=== PATIENT | male | born 1960 | race Caucasian/White ===

== ENCOUNTER 2021-03-02 22:18 | Inpatient (IN) ==
[2021-03-02] MEDS ORDERED: Isovue-370 500 ML BOTTLE IVP ONE (23:24)
[2021-03-02] MEDS ORDERED: *HR* HYDROmorphone (PF) 1 MG/ML SYRINGE IVP ONE (23:25)
[2021-03-02 23:47] LABS: Basophils # 0.1 K/mcL (0.0-0.2); Basophils % 0.8 %; Eosinophils # 0.1 K/mcL (0.0-0.6); Eosinophils % 0.5 %; Hematocrit 30.5 % (37.5-50.1); Hemoglobin 10.9 g/dL (12.9-16.9); Immature Granulocytes % 7.3 % (0-4); Lymphocytes # 1.5 K/mcL (0.6-4.6); Lymphocytes % 11.5 %; Mean Corpuscular HGB Conc 35.7 g/dL (31.6-35.5); Mean Corpuscular Hemoglobin 32.2 pg (28.0-33.3); Mean Platelet Volume 8.6 fL (9.4-12.4); Monocytes # 1.5 K/mcL (0.0-1.3); Monocytes % 11.6 %; Platelet Count 371 K/mcL (140-400); Red Blood Count 3.39 M/mcL (4.19-5.50); Red Cell Distribution Width 12.4 % (11.5-14.5); Segmented Neutrophils % 68.3 %; White Blood Count 13.1 K/mcL (4.3-11.1)
[2021-03-02 23:50] LABS: Bilirubin,Urine Negative (Negative); Blood,Urine Negative (Negative); Clarity,Urine Clear (Clear); Color,Urine Yellow (Yellow); Glucose,Urine (UA) Normal (Normal); Ketones,Urine Negative (Negative); Leukocyte Esterase,Urine Negative (Negative); Nitrite,Urine Negative (Negative); PH,Urine 6.5 pH Units (5.0-8.0); Protein,Urine Trace mg/dL (Neg-Trace); Specific Gravity,Urine 1.024 (1.010-1.025); Urobilinogen,Urine >=8.0 mg/dL (Normal)
[2021-03-02 23:53] LABS: Alanine Aminotransferase 39 Units/L (7-52); Albumin 3.1 g/dL (3.5-5.7); Alkaline Phosphatase 154 Units/L (34-104); Aspartate Amino Transferase 44 Units/L (13-39); BUN/Creatinine Ratio 33 (6-26); Bilirubin,Direct 0.2 mg/dL (0.0-0.2); Bilirubin,Indirect 0.4 mg/dL (0.0-1.0); Bilirubin,Total 0.6 mg/dL (0.3-1.0); Blood Urea Nitrogen 21 mg/dL (8-23); Calcium 8.8 mg/dL (8.6-10.3); Carbon Dioxide 27 mEq/L (23-29); Chloride 92 mEq/L (98-107); Glucose 126 mg/dL (70-105); Lipase 11 Units/L (11-82); Osmolality,Calculated 275 (280-300); Potassium 4.2 mEq/L (3.5-5.1); Sodium 130 mEq/L (136-145); Total Protein 6.1 g/dL (6.4-8.9); Troponin I 0.03 ng/mL (< 0.04); eGFR For African Americans > 60 (> 60); eGFR For Non-African Americans > 60 (> 60)
[2021-03-03 00:01] LABS: INR 1.3
[2021-03-03 00:04] LABS: Platelet Estimate Normal (Normal); Smudge Cells Present (Not Present); Toxic Granulation Present (Not Present)
[2021-03-03] MEDS ORDERED: Acetaminophen 325 MG TABLET PO PRN (03:06)
[2021-03-03] MEDS ORDERED: Naloxone 0.4 MG/ML INJ IVP PRN (03:06)
[2021-03-03] MEDS ORDERED: Ondansetron 4 MG/2 ML VIAL IVP PRN (03:06)
[2021-03-03] MEDS ORDERED: *HR* HYDROmorphone (PF) 1 MG/ML SYRINGE IVP PRN (03:55)
[2021-03-03 05:47] LABS: Hematocrit 29.5 % (37.5-50.1); Hemoglobin 10.6 g/dL (12.9-16.9); Mean Corpuscular HGB Conc 35.9 g/dL (31.6-35.5); Mean Corpuscular Hemoglobin 32.3 pg (28.0-33.3); Mean Corpuscular Volume 89.9 fL (83.0-100.0); Mean Platelet Volume 8.5 fL (9.4-12.4); Platelet Count 335 K/mcL (140-400); Red Blood Count 3.28 M/mcL (4.19-5.50); Red Cell Distribution Width 12.2 % (11.5-14.5); White Blood Count 13.2 K/mcL (4.3-11.1)
[2021-03-03 06:07] LABS: BUN/Creatinine Ratio 29 (6-26); Blood Urea Nitrogen 17 mg/dL (8-23); Calcium 8.5 mg/dL (8.6-10.3); Carbon Dioxide 26 mEq/L (23-29); Chloride 94 mEq/L (98-107); Glucose 122 mg/dL (70-105); Osmolality,Calculated 267 (280-300); Potassium 4.1 mEq/L (3.5-5.1); Sodium 127 mEq/L (136-145); eGFR For African Americans > 60 (> 60); eGFR For Non-African Americans > 60 (> 60)
[2021-03-03] MEDS: 0.9 % Sodium Chloride 1,000 ML IVC SCH ×2 (06:34→22:47)
[2021-03-03 08:18] LABS: % Iron Saturation 15 % (20-55); Iron 39 mcg/dL (65-175); Transferrin 183 mg/dL (203-362)
[2021-03-03] MEDS: *HR* Heparin 5,000 UNIT/ML VIAL SQ SCH ×3 (08:25→22:42)
[2021-03-03 08:35] LABS: Ferritin 1400 ng/mL (20-250)
[2021-03-03] MEDS: *HR* HYDROmorphone (PF) 1 MG/ML SYRINGE IVP PRN ×4 (08:49→22:41)
[2021-03-03 09:41] LABS: Vitamin B12 > 1500 pg/mL (250-1100)
[2021-03-03] MEDS: levoFLOXacin 750 MG/150 ML 750 MG/150 ML BAG IVPB SCH (13:32)
[2021-03-03] MEDS: Nicotine 14 MG PATCH.TD24 TD SCH (13:33)
[2021-03-03 18:18] LABS: Adenovirus Not Detected (Not Detect); Bordetella Pertussis Not Detected (Not Detect); Chlamydophila pneumoniae Not Detected (Not Detect); Coronavirus 229E Not Detected (Not Detect); Coronavirus HKU1 Not Detected (Not Detect); Coronavirus NL63 Not Detected (Not Detect); Coronavirus OC43 Not Detected (Not Detect); Human Metapneumovirus Not Detected (Not Detect); Human Rhinovirus/Enterovirus Not Detected (Not Detect); Influenza A Subtype 2009 H1 Not Detected (Not Detect); Influenza B Not Detected (Not Detect); Mycoplasma pneumoniae Not Detected (Not Detect); Parainfluenza Virus 1 Not Detected (Not Detect); Parainfluenza Virus 2 Not Detected (Not Detect); Parainfluenza Virus 3 Not Detected (Not Detect); Parainfluenza Virus 4 Not Detected (Not Detect); Respiratory Syncytial Virus Not Detected (Not Detect); SARS-CoV-2 Not Detected (Not Detect)
[2021-03-04] MEDS: *HR* HYDROmorphone (PF) 1 MG/ML SYRINGE IVP PRN ×5 (02:32→22:01)
[2021-03-04] MEDS ORDERED: *HR* Propofol 200 MG/20 ML VIAL IVP ONE ×3 (07:20→08:41)
[2021-03-04] MEDS ORDERED: Lidocaine -MPF 2% 5 ML VIAL ONE (07:20)
[2021-03-04] MEDS ORDERED: *HR* Succinylcholine 200 MG/10 ML VIAL IVP ONE (07:23)
[2021-03-04] MEDS ORDERED: *HR* FentaNYL (PF) 100 MCG/2 ML VIAL ONE (07:24)
[2021-03-04 07:32] LABS: Hematocrit 34.4 % (37.5-50.1); Mean Corpuscular HGB Conc 34.9 g/dL (31.6-35.5); Mean Corpuscular Hemoglobin 31.7 pg (28.0-33.3); Mean Corpuscular Volume 90.8 fL (83.0-100.0); Mean Platelet Volume 8.7 fL (9.4-12.4); Nucleated Red Blood Cells 0.1 /100 WBC (0); Platelet Count 376 K/mcL (140-400); Red Blood Count 3.79 M/mcL (4.19-5.50); Red Cell Distribution Width 12.4 % (11.5-14.5); White Blood Count 14.5 K/mcL (4.3-11.1)
[2021-03-04] MEDS ORDERED: Ondansetron 4 MG/2 ML VIAL ONE (07:32)
[2021-03-04 07:51] LABS: BUN/Creatinine Ratio 23 (6-26); Blood Urea Nitrogen 14 mg/dL (8-23); Calcium 9.1 mg/dL (8.6-10.3); Carbon Dioxide 22 mEq/L (23-29); Chloride 92 mEq/L (98-107); Glucose 113 mg/dL (70-105); Magnesium 1.7 mg/dL (1.6-2.6); Osmolality,Calculated 263 (280-300); Sodium 126 mEq/L (136-145); eGFR For African Americans > 60 (> 60); eGFR For Non-African Americans > 60 (> 60)
[2021-03-04 08:00] LABS: Carcinoembryonic Antigen 2.6 ng/mL (Less than 5.0)
[2021-03-04] MEDS ORDERED: Albuterol 2.5 MG/3 ML NEBULIZER IH PRN (08:02)
[2021-03-04] MEDS ORDERED: Ondansetron 4 MG/2 ML VIAL IVP PRN (08:02)
[2021-03-04] MEDS ORDERED: *HR* FentaNYL (PF) 100 MCG/2 ML VIAL IVP PRN (08:02)
[2021-03-04 08:21] LABS: Lymphocytes # 1.5 K/mcL (0.6-4.6); Monocytes # 0.6 K/mcL (0.0-1.3); Neutrophils # 11.6 K/mcL (1.6-8.9); Platelet Estimate Normal (Normal)
[2021-03-04] MEDS ORDERED: *HR* EPINEPHrine 1 MG/10 ML SYRINGE INTRATRACH PRN (08:48)
[2021-03-04] MEDS ORDERED: *HR* EPINEPHrine 1 MG/10 ML SYRINGE ONE (08:51)
[2021-03-04] MEDS ORDERED: Gadolinium Contrast Agent (WT Based) IV PRN (09:46)
[2021-03-04] MEDS ORDERED: GADOBUTROL 30 MMOL/30 ML VIAL IVP ONE (12:01)
[2021-03-04] MEDS: levoFLOXacin 750 MG/150 ML 750 MG/150 ML BAG IVPB SCH (14:05)
[2021-03-04] MEDS: Nicotine 14 MG PATCH.TD24 TD SCH (14:17)
[2021-03-04] MEDS: Multivit/Ca/Min/Fe/FA 1 TAB TABLET PO SCH (14:18)
[2021-03-04] MEDS ORDERED: D5% in Water 1,000 ML IVC PRN (15:25)
[2021-03-04] MEDS ORDERED: Dextrose Gel 15 GM/37.5 ML TUBE PO PRN ×2 (15:25)
[2021-03-04] MEDS ORDERED: *HR* Dextrose 50 % in Water (Vial) 50 ML VIAL IVP PRN (15:25)
[2021-03-04] MEDS ORDERED: Temazepam 15 MG CAPSULE PO PRN (15:26)
[2021-03-04] MEDS ORDERED: dexAMETHasone 4 MG TABLET PO SCH (15:30)
[2021-03-04] MEDS: Sennosides 8.6 MG TABLET PO SCH ×2 (15:56→22:00)
[2021-03-04] MEDS: dexAMETHasone 4 MG TABLET PO SCH ×2 (16:42→22:00)
[2021-03-04] MEDS: Insulin LISPRO 300 UNITS/3 ML VIAL SUBQ SCH ×2 (18:23→22:01)
[2021-03-04] MEDS: 0.9 % Sodium Chloride 1,000 ML IVC SCH (18:31)
[2021-03-04 19:44] LABS: Appearance of Body Fluid Clear (Clear)
[2021-03-04 19:45] LABS: Volume of Body Fluid 150 mL
[2021-03-04] MEDS: Temazepam 15 MG CAPSULE PO SCH (22:00)
[2021-03-05] MEDS: *HR* HYDROmorphone (PF) 1 MG/ML SYRINGE IVP PRN ×5 (04:27→21:41)
[2021-03-05] MEDS: 0.9 % Sodium Chloride 1,000 ML IVC SCH (06:17)
[2021-03-05] MEDS: *HR* Enoxaparin 40 MG/0.4 ML SYRINGE SQ SCH (06:17)
[2021-03-05 06:25] LABS: Hematocrit 35.1 % (37.5-50.1); Hemoglobin 11.9 g/dL (12.9-16.9); Mean Corpuscular HGB Conc 33.9 g/dL (31.6-35.5); Mean Corpuscular Hemoglobin 30.9 pg (28.0-33.3); Mean Corpuscular Volume 91.2 fL (83.0-100.0); Mean Platelet Volume 8.7 fL (9.4-12.4); Platelet Count 387 K/mcL (140-400); Red Blood Count 3.85 M/mcL (4.19-5.50); Red Cell Distribution Width 12.6 % (11.5-14.5); White Blood Count 17.7 K/mcL (4.3-11.1)
[2021-03-05 06:43] LABS: BUN/Creatinine Ratio 38 (6-26); Blood Urea Nitrogen 23 mg/dL (8-23); Calcium 9.1 mg/dL (8.6-10.3); Carbon Dioxide 26 mEq/L (23-29); Chloride 96 mEq/L (98-107); Glucose 215 mg/dL (70-105); Magnesium 1.8 mg/dL (1.6-2.6); Osmolality,Calculated 282 (280-300); Sodium 131 mEq/L (136-145); eGFR For African Americans > 60 (> 60); eGFR For Non-African Americans > 60 (> 60)
[2021-03-05 07:02] LABS: Lymphocytes # 1.8 K/mcL (0.6-4.6); Monocytes # 0.7 K/mcL (0.0-1.3); Neutrophils # 15.2 K/mcL (1.6-8.9); Platelet Estimate Normal (Normal); Reactive Lymphocytes Present (Not Present); Smudge Cells Present (Not Present); Toxic Granulation Present (Not Present)
[2021-03-05] MEDS: Multivit/Ca/Min/Fe/FA 1 TAB TABLET PO SCH (08:57)
[2021-03-05] MEDS: Sennosides 8.6 MG TABLET PO SCH ×2 (08:57→20:40)
[2021-03-05] MEDS: dexAMETHasone 4 MG TABLET PO SCH ×3 (08:57→20:40)
[2021-03-05] MEDS: Nicotine 14 MG PATCH.TD24 TD SCH (08:58)
[2021-03-05] MEDS: Insulin LISPRO 300 UNITS/3 ML VIAL SUBQ SCH ×4 (08:58→20:43)
[2021-03-05] MEDS: levoFLOXacin 750 MG/150 ML 750 MG/150 ML BAG IVPB SCH (17:31)
[2021-03-05] MEDS: Temazepam 15 MG CAPSULE PO SCH (20:40)
[2021-03-06] MEDS: *HR* HYDROmorphone (PF) 1 MG/ML SYRINGE IVP PRN ×4 (02:15→16:24)
[2021-03-06] MEDS: *HR* Enoxaparin 40 MG/0.4 ML SYRINGE SQ SCH (06:04)
[2021-03-06 07:40] LABS: Hemoglobin 10.9 g/dL (12.9-16.9); Mean Corpuscular HGB Conc 34.1 g/dL (31.6-35.5); Mean Corpuscular Hemoglobin 31.5 pg (28.0-33.3); Mean Corpuscular Volume 92.5 fL (83.0-100.0); Mean Platelet Volume 8.6 fL (9.4-12.4); Platelet Count 384 K/mcL (140-400); Red Blood Count 3.46 M/mcL (4.19-5.50); Red Cell Distribution Width 12.5 % (11.5-14.5)
[2021-03-06] MEDS: 0.9 % Sodium Chloride 1,000 ML IVC SCH (07:50)
[2021-03-06 07:59] LABS: BUN/Creatinine Ratio 43 (6-26); Blood Urea Nitrogen 25 mg/dL (8-23); Calcium 8.8 mg/dL (8.6-10.3); Carbon Dioxide 27 mEq/L (23-29); Chloride 97 mEq/L (98-107); Glucose 125 mg/dL (70-105); Osmolality,Calculated 276 (280-300); Potassium 4.4 mEq/L (3.5-5.1); Sodium 130 mEq/L (136-145); eGFR For African Americans > 60 (> 60); eGFR For Non-African Americans > 60 (> 60)
[2021-03-06 08:22] LABS: Lymphocytes # 1.8 K/mcL (0.6-4.6); Monocytes # 0.7 K/mcL (0.0-1.3); Neutrophils # 13.7 K/mcL (1.6-8.9); Platelet Estimate Normal (Normal)
[2021-03-06] MEDS: Insulin LISPRO 300 UNITS/3 ML VIAL SUBQ SCH ×4 (08:28→21:07)
[2021-03-06] MEDS: dexAMETHasone 4 MG TABLET PO SCH ×3 (08:34→21:04)
[2021-03-06] MEDS: Multivit/Ca/Min/Fe/FA 1 TAB TABLET PO SCH (08:34)
[2021-03-06] MEDS: Sennosides 8.6 MG TABLET PO SCH ×2 (08:34→21:04)
[2021-03-06] MEDS: Nicotine 14 MG PATCH.TD24 TD SCH (08:35)
[2021-03-06 11:19] LABS: AFP Tumor Marker Non-Pregnant 1 ng/mL (0-9); Cancer Antigen-GI (CA 19-9) 61 U/mL (0-37)
[2021-03-06] MEDS: levoFLOXacin 750 MG/150 ML 750 MG/150 ML BAG IVPB SCH (12:16)
[2021-03-06] MEDS ORDERED: Ipratropium/Albuterol Neb 3 ML IH PRN (12:17)
[2021-03-06] MEDS ORDERED: Benzonatate 100 MG CAPSULE PO PRN (12:17)
[2021-03-06] MEDS: Mirtazapine 15 MG TABLET PO SCH (21:04)
[2021-03-06] MEDS: Temazepam 15 MG CAPSULE PO SCH (21:04)
[2021-03-07 02:34] LABS: Hematocrit 30.1 % (37.5-50.1); Hemoglobin 10.6 g/dL (12.9-16.9); Mean Corpuscular HGB Conc 35.2 g/dL (31.6-35.5); Mean Corpuscular Hemoglobin 32.2 pg (28.0-33.3); Mean Corpuscular Volume 91.5 fL (83.0-100.0); Mean Platelet Volume 8.6 fL (9.4-12.4); Nucleated Red Blood Cells 0.1 /100 WBC (0); Platelet Count 357 K/mcL (140-400); Red Blood Count 3.29 M/mcL (4.19-5.50); Red Cell Distribution Width 12.3 % (11.5-14.5); White Blood Count 17.1 K/mcL (4.3-11.1)
[2021-03-07 02:51] LABS: BUN/Creatinine Ratio 30 (6-26); Blood Urea Nitrogen 22 mg/dL (8-23); Calcium 8.5 mg/dL (8.6-10.3); Carbon Dioxide 26 mEq/L (23-29); Chloride 95 mEq/L (98-107); Glucose 132 mg/dL (70-105); Magnesium 1.9 mg/dL (1.6-2.6); Osmolality,Calculated 269 (280-300); Potassium 4.4 mEq/L (3.5-5.1); Sodium 127 mEq/L (136-145); eGFR For African Americans > 60 (> 60); eGFR For Non-African Americans > 60 (> 60)
[2021-03-07 03:03] LABS: Lymphocytes # 1.7 K/mcL (0.6-4.6); Monocytes # 0.7 K/mcL (0.0-1.3); Neutrophils # 13.7 K/mcL (1.6-8.9); Platelet Estimate Normal (Normal)
[2021-03-07] MEDS: *HR* Enoxaparin 40 MG/0.4 ML SYRINGE SQ SCH (05:45)
[2021-03-07] MEDS: *HR* HYDROmorphone (PF) 1 MG/ML SYRINGE IVP PRN ×2 (08:28→17:20)
[2021-03-07] MEDS: Multivit/Ca/Min/Fe/FA 1 TAB TABLET PO SCH (08:29)
[2021-03-07] MEDS: Sennosides 8.6 MG TABLET PO SCH ×2 (08:29→19:58)
[2021-03-07] MEDS: dexAMETHasone 4 MG TABLET PO SCH ×3 (08:29→19:58)
[2021-03-07] MEDS: Nicotine 14 MG PATCH.TD24 TD SCH (08:30)
[2021-03-07] MEDS: Insulin LISPRO 300 UNITS/3 ML VIAL SUBQ SCH ×4 (08:30→21:34)
[2021-03-07] MEDS ORDERED: amLODIPine 5 MG TABLET PO SCH (09:00)
[2021-03-07] MEDS: levoFLOXacin 750 MG/150 ML 750 MG/150 ML BAG IVPB SCH (17:19)
[2021-03-07] MEDS: Temazepam 15 MG CAPSULE PO SCH (19:58)
[2021-03-07] MEDS: Mirtazapine 15 MG TABLET PO SCH (19:58)
[2021-03-08 05:21] LABS: Hematocrit 32.2 % (37.5-50.1); Mean Corpuscular HGB Conc 34.2 g/dL (31.6-35.5); Mean Corpuscular Hemoglobin 30.6 pg (28.0-33.3); Mean Corpuscular Volume 89.7 fL (83.0-100.0); Mean Platelet Volume 8.7 fL (9.4-12.4); Nucleated Red Blood Cells 0.1 /100 WBC (0); Platelet Count 386 K/mcL (140-400); Red Blood Count 3.59 M/mcL (4.19-5.50); Red Cell Distribution Width 12.4 % (11.5-14.5); White Blood Count 20.7 K/mcL (4.3-11.1)
[2021-03-08 05:41] LABS: BUN/Creatinine Ratio 29 (6-26); Blood Urea Nitrogen 19 mg/dL (8-23); Calcium 8.9 mg/dL (8.6-10.3); Carbon Dioxide 26 mEq/L (23-29); Chloride 90 mEq/L (98-107); Glucose 116 mg/dL (70-105); Magnesium 1.8 mg/dL (1.6-2.6); Osmolality,Calculated 261 (280-300); Potassium 4.3 mEq/L (3.5-5.1); Sodium 124 mEq/L (136-145); eGFR For African Americans > 60 (> 60); eGFR For Non-African Americans > 60 (> 60)
[2021-03-08 05:46] LABS: Lymphocytes # 1.2 K/mcL (0.6-4.6); Monocytes # 1.7 K/mcL (0.0-1.3); Platelet Estimate Normal (Normal)
[2021-03-08] MEDS ORDERED: Isovue-370 500 ML BOTTLE IVP ONE (08:14)
[2021-03-08] MEDS: Nicotine 14 MG PATCH.TD24 TD SCH (08:20)
[2021-03-08] MEDS: dexAMETHasone 4 MG TABLET PO SCH ×3 (08:26→20:06)
[2021-03-08] MEDS: Multivit/Ca/Min/Fe/FA 1 TAB TABLET PO SCH (08:26)
[2021-03-08] MEDS: *HR* HYDROmorphone (PF) 1 MG/ML SYRINGE IVP PRN (08:26)
[2021-03-08] MEDS: Sennosides 8.6 MG TABLET PO SCH ×2 (08:26→20:06)
[2021-03-08] MEDS: amLODIPine 5 MG TABLET PO SCH (08:27)
[2021-03-08 09:56] LABS: Potassium,Urine 18.2 mEq/L; Protein/Creatinine Ratio,Urine 0.13 mg/mg (0.00-0.20); Sodium, Urine 62.1 mEq/L
[2021-03-08] MEDS ORDERED: *HR* FentaNYL PATCH 25 MCG PATCH TD SCH (12:15)
[2021-03-08] MEDS: Insulin LISPRO 300 UNITS/3 ML VIAL SUBQ SCH ×4 (12:30→20:00)
[2021-03-08] MEDS: levoFLOXacin 750 MG TABLET PO SCH (13:01)
[2021-03-08] MEDS: *HR* OxyCODONE Immed Rel 5 MG TABLET PO PRN ×2 (16:07→19:45)
[2021-03-08] MEDS: Temazepam 15 MG CAPSULE PO SCH (22:15)
[2021-03-08] MEDS: Mirtazapine 15 MG TABLET PO SCH (22:16)
[2021-03-09] MEDS: *HR* OxyCODONE Immed Rel 5 MG TABLET PO PRN ×5 (04:45→21:03)
[2021-03-09 05:00] LABS: Hematocrit 34.1 % (37.5-50.1); Hemoglobin 11.6 g/dL (12.9-16.9); Mean Corpuscular Hemoglobin 30.7 pg (28.0-33.3); Mean Corpuscular Volume 90.2 fL (83.0-100.0); Mean Platelet Volume 8.5 fL (9.4-12.4); Nucleated Red Blood Cells 0.1 /100 WBC (0); Platelet Count 381 K/mcL (140-400); Red Blood Count 3.78 M/mcL (4.19-5.50); Red Cell Distribution Width 12.6 % (11.5-14.5); White Blood Count 23.6 K/mcL (4.3-11.1)
[2021-03-09 05:09] LABS: INR 1.3
[2021-03-09 05:11] LABS: BUN/Creatinine Ratio 39 (6-26); Blood Urea Nitrogen 22 mg/dL (8-23); Calcium 8.8 mg/dL (8.6-10.3); Carbon Dioxide 24 mEq/L (23-29); Chloride 92 mEq/L (98-107); Glucose 153 mg/dL (70-105); Magnesium 1.9 mg/dL (1.6-2.6); Osmolality,Calculated 268 (280-300); Potassium 4.8 mEq/L (3.5-5.1); Sodium 126 mEq/L (136-145); eGFR For African Americans > 60 (> 60); eGFR For Non-African Americans > 60 (> 60)
[2021-03-09 05:12] LABS: Albumin 3.2 g/dL (3.5-5.7); Albumin/Globulin Ratio 1.1 (1.1-2.2); Bilirubin,Direct 0.1 mg/dL (0.0-0.2); Bilirubin,Indirect 0.5 mg/dL (0.0-1.0); Bilirubin,Total 0.6 mg/dL (0.3-1.0); Globulin 2.8 g/dL (2.4-3.5)
[2021-03-09 05:13] LABS: Phosphorous 3.7 mg/dL (2.7-4.5); Uric Acid 2.3 mg/dL (2.3-7.6)
[2021-03-09 05:26] LABS: Thyroid Stimulating Hormone 1.348 mcIU/mL (0.340-5.600)
[2021-03-09 05:52] LABS: Eosinophils # 0.5 K/mcL (0.0-0.6); Lymphocytes # 2.4 K/mcL (0.6-4.6); Monocytes # 1.9 K/mcL (0.0-1.3); Neutrophils # 17.5 K/mcL (1.6-8.9)
[2021-03-09 05:53] LABS: Platelet Estimate Normal (Normal)
[2021-03-09] MEDS: Sennosides 8.6 MG TABLET PO SCH ×2 (08:12→21:03)
[2021-03-09] MEDS: amLODIPine 5 MG TABLET PO SCH (08:12)
[2021-03-09] MEDS: Nicotine 14 MG PATCH.TD24 TD SCH (08:13)
[2021-03-09] MEDS: Multivit/Ca/Min/Fe/FA 1 TAB TABLET PO SCH (08:13)
[2021-03-09] MEDS: dexAMETHasone 4 MG TABLET PO SCH ×3 (08:13→21:03)
[2021-03-09] MEDS: levoFLOXacin 750 MG TABLET PO SCH (12:28)
[2021-03-09] MEDS: Insulin LISPRO 300 UNITS/3 ML VIAL SUBQ SCH ×4 (13:42→20:46)
[2021-03-09] MEDS: *HR* Enoxaparin 40 MG/0.4 ML SYRINGE SQ SCH (13:43)
[2021-03-09] MEDS: Temazepam 15 MG CAPSULE PO SCH (21:03)
[2021-03-09] MEDS: Mirtazapine 15 MG TABLET PO SCH (21:03)
[2021-03-10] MEDS: *HR* OxyCODONE Immed Rel 5 MG TABLET PO PRN ×3 (03:35→14:33)
[2021-03-10 05:50] LABS: Nucleated Red Blood Cells 0.1 /100 WBC (0)
[2021-03-10 05:59] LABS: Hematocrit 39.5 % (37.5-50.1); Hemoglobin 13.3 g/dL (12.9-16.9); Mean Corpuscular HGB Conc 33.7 g/dL (31.6-35.5); Mean Corpuscular Hemoglobin 30.9 pg (28.0-33.3); Mean Corpuscular Volume 91.9 fL (83.0-100.0); Mean Platelet Volume 8.6 fL (9.4-12.4); Platelet Count 430 K/mcL (140-400); White Blood Count 27.2 K/mcL (4.3-11.1)
[2021-03-10 06:13] LABS: BUN/Creatinine Ratio 38 (6-26); Blood Urea Nitrogen 24 mg/dL (8-23); Calcium 9.5 mg/dL (8.6-10.3); Carbon Dioxide 27 mEq/L (23-29); Chloride 93 mEq/L (98-107); Glucose 152 mg/dL (70-105); Magnesium 2.1 mg/dL (1.6-2.6); Osmolality,Calculated 275 (280-300); Potassium 4.8 mEq/L (3.5-5.1); Sodium 129 mEq/L (136-145); eGFR For African Americans > 60 (> 60); eGFR For Non-African Americans > 60 (> 60)
[2021-03-10 06:37] LABS: Lymphocytes # 3.8 K/mcL (0.6-4.6); Monocytes # 1.6 K/mcL (0.0-1.3); Neutrophils # 20.1 K/mcL (1.6-8.9); Reactive Lymphocytes Present (Not Present)
[2021-03-10] MEDS: *HR* Enoxaparin 40 MG/0.4 ML SYRINGE SQ SCH (06:48)
[2021-03-10] MEDS: Insulin LISPRO 300 UNITS/3 ML VIAL SUBQ SCH ×2 (10:01→12:35)
[2021-03-10] MEDS: dexAMETHasone 4 MG TABLET PO SCH (10:17)
[2021-03-10] MEDS: Sennosides 8.6 MG TABLET PO SCH (10:17)
[2021-03-10] MEDS: Multivit/Ca/Min/Fe/FA 1 TAB TABLET PO SCH (10:17)
[2021-03-10] MEDS: Nicotine 14 MG PATCH.TD24 TD SCH (10:18)
[2021-03-10] MEDS: amLODIPine 5 MG TABLET PO SCH (10:18)
[2021-03-10 11:08] VITALS: BP 147/91
[2021-03-10] MEDS: levoFLOXacin 750 MG TABLET PO SCH (11:42)
== END 2021-03-10 14:39 | disposition home health service (06) | DRG 136 ==
LOC: EMEROOARM 22:18 → 3ANU 22:18 → SUATTDRO 03-03 02:50 → 3ANU 03-03 03:08 → SUATTDRO 03-05 21:55 → 3ANU 03-06 01:50
PROVIDERS: ADMIT Student in an Organized Health Care Education/Training Program; ATTEND Internal Medicine
PROC: ENDOBRF (2021-03-04 08:00)

== ENCOUNTER 2021-03-26 14:56 | Inpatient (IN) ==
[2021-03-26 15:45] LABS: Hemoglobin 8.2 g/dL (12.9-16.9); Mean Corpuscular HGB Conc 32.8 g/dL (31.6-35.5)
[2021-03-26 15:47] LABS: Immature Platelets 4.4 % (1.1-6.1); Mean Corpuscular Hemoglobin 30.1 pg (28.0-33.3); Mean Corpuscular Volume 91.9 fL (83.0-100.0); Platelet Count 53 K/mcL (140-400); Red Blood Count 2.72 M/mcL (4.19-5.50); Red Cell Distribution Width 13.7 % (11.5-14.5); White Blood Count 3.9 K/mcL (4.3-11.1)
[2021-03-26 16:06] LABS: Alanine Aminotransferase 78 Units/L (7-52); Albumin/Globulin Ratio 1.1 (1.1-2.2); Alkaline Phosphatase 273 Units/L (34-104); Aspartate Amino Transferase 56 Units/L (13-39); BUN/Creatinine Ratio 54 (6-26); Blood Urea Nitrogen 28 mg/dL (8-23); Calcium 8.2 mg/dL (8.6-10.3); Carbon Dioxide 28 mEq/L (23-29); Chloride 97 mEq/L (98-107); Globulin 2.7 g/dL (2.4-3.5); Glucose 121 mg/dL (70-105); Lipase 29 Units/L (11-82); Osmolality,Calculated 285 (280-300); Potassium 4.2 mEq/L (3.5-5.1); Sodium 134 mEq/L (136-145); Total Protein 5.7 g/dL (6.4-8.9); eGFR For African Americans > 60 (> 60); eGFR For Non-African Americans > 60 (> 60)
[2021-03-26 16:17] LABS: Lymphocytes # 0.8 K/mcL (0.6-4.6); Monocytes # 0.2 K/mcL (0.0-1.3); Neutrophils # 2.7 K/mcL (1.6-8.9); Platelet Estimate Decreased (Normal); Reactive Lymphocytes Present (Not Present)
[2021-03-26] MEDS ORDERED: Isovue-370 500 ML BOTTLE IVP ONE (17:13)
[2021-03-26 17:18] LABS: Bilirubin,Urine Negative (Negative); Blood,Urine Negative (Negative); Clarity,Urine Clear (Clear); Color,Urine Light-Yellow (Yellow); Glucose,Urine (UA) Normal (Normal); Ketones,Urine Negative (Negative); Leukocyte Esterase,Urine Negative (Negative); Nitrite,Urine Negative (Negative); Protein,Urine Negative (Neg-Trace); Specific Gravity,Urine 1.016 (1.010-1.025)
[2021-03-26] MEDS ORDERED: Furosemide 40 MG/4 ML VIAL IVP ONE (20:21)
[2021-03-26] MEDS ORDERED: Ondansetron 4 MG/2 ML VIAL IVP ONE (21:49)
[2021-03-26 21:53] LABS: Hematocrit 27.2 % (37.5-50.1); Hemoglobin 9.1 g/dL (12.9-16.9); Immature Platelets 3.9 % (1.1-6.1); Mean Corpuscular HGB Conc 33.5 g/dL (31.6-35.5); Mean Corpuscular Hemoglobin 30.5 pg (28.0-33.3); Mean Corpuscular Volume 91.3 fL (83.0-100.0); Mean Platelet Volume 9.4 fL (9.4-12.4); Nucleated Red Blood Cells 1.1 /100 WBC (0); Red Blood Count 2.98 M/mcL (4.19-5.50); Red Cell Distribution Width 13.6 % (11.5-14.5); White Blood Count 4.4 K/mcL (4.3-11.1)
[2021-03-26] MEDS ORDERED: Ondansetron 4 MG/2 ML VIAL IVP PRN (21:58)
[2021-03-26] MEDS ORDERED: *HR* OxyCODONE Immed Rel 5 MG TABLET PO PRN (21:58)
[2021-03-26] MEDS ORDERED: Naloxone 0.4 MG/ML INJ IVP PRN (21:58)
[2021-03-26] MEDS ORDERED: *HR* HYDROcodone/Acet 5/325 mg TABLET PO PRN (21:58)
[2021-03-26] MEDS ORDERED: *HR* Promethazine 25 MG/ML VIAL IM PRN (21:58)
[2021-03-26] MEDS ORDERED: NON-FORMULARY MEDICATION 1 EACH EACH (Oxycodone Immed Rel 10 MG Tablet) PO PRN (22:01)
[2021-03-26 22:10] LABS: Platelet Count 57 K/mcL (140-400)
[2021-03-26 22:14] LABS: Eosinophils # 0.1 K/mcL (0.0-0.6); Lymphocytes # 0.7 K/mcL (0.6-4.6); Monocytes # 0.3 K/mcL (0.0-1.3); Neutrophils # 3.3 K/mcL (1.6-8.9)
[2021-03-26 22:17] LABS: Platelet Estimate Decreased (Normal); Smudge Cells Present (Not Present)
[2021-03-26 22:18] LABS: Polychromasia 1+ (Not Present)
[2021-03-26] MEDS ORDERED: Perflutren Lipid Microsphere 1.3 ML in 0.9 % Sodium Chloride 8.7 ML IVP PRN (22:23)
[2021-03-26] MEDS: *HR* FentaNYL PATCH 25 MCG PATCH TD SCH (23:34)
[2021-03-26] MEDS: Melatonin 3 MG TABLET PO PRN (23:38)
[2021-03-26] MEDS: Temazepam 15 MG CAPSULE PO PRN (23:38)
[2021-03-26] MEDS: Vancomycin 1,250 MG/262.5 ML IV.SOLN IVPB SCH (23:39)
[2021-03-26] MEDS: Cefepime HCl 2,000 MG in Water for inj. (sterile) 20 ML IVP SCH (23:52)
[2021-03-26 23:55] LABS: Hemoglobin 8.3 g/dL (12.9-16.9); Nucleated Red Blood Cells 1.1 /100 WBC (0)
[2021-03-26 23:57] LABS: Hematocrit 25.2 % (37.5-50.1); Immature Platelets 3.9 % (1.1-6.1); Mean Corpuscular HGB Conc 32.9 g/dL (31.6-35.5); Mean Platelet Volume 10.2 fL (9.4-12.4); Red Blood Count 2.77 M/mcL (4.19-5.50); Red Cell Distribution Width 13.7 % (11.5-14.5); White Blood Count 3.8 K/mcL (4.3-11.1)
[2021-03-27 00:02] LABS: Platelet Count 52 K/mcL (140-400)
[2021-03-27 00:09] LABS: BUN/Creatinine Ratio 48 (6-26); Blood Urea Nitrogen 28 mg/dL (8-23); Calcium 8.1 mg/dL (8.6-10.3); Carbon Dioxide 27 mEq/L (23-29); Chloride 97 mEq/L (98-107); Cholesterol 209 mg/dL (< 200); Glucose 150 mg/dL (70-105); HDL Cholesterol 42 mg/dL (40-59); INR 1.2; LDL Cholesterol,Calculated 138 mg/dL (< 100); Osmolality,Calculated 290 (280-300); Potassium 3.6 mEq/L (3.5-5.1); Sodium 136 mEq/L (136-145); Triglycerides 144 mg/dL (< 150); eGFR For African Americans > 60 (> 60); eGFR For Non-African Americans > 60 (> 60)
[2021-03-27 01:11] LABS: Eosinophils # 0.1 K/mcL (0.0-0.6); Lymphocytes # 0.1 K/mcL (0.6-4.6); Monocytes # 0.2 K/mcL (0.0-1.3); Neutrophils # 3.3 K/mcL (1.6-8.9); Platelet Estimate Decreased (Normal); Reactive Lymphocytes Present (Not Present); Smudge Cells Present (Not Present); Toxic Granulation Present (Not Present)
[2021-03-27 05:59] LABS: Protein/Creatinine Ratio,Urine 0.21 mg/mg (0.00-0.20)
[2021-03-27] MEDS ORDERED: Doxycycline 100 MG in 0.9 % Sodium Chloride Mini Bag 100 ML IVPB SCH (06:00)
[2021-03-27 06:24] LABS: Hematocrit 24.7 % (37.5-50.1); Hemoglobin 8.2 g/dL (12.9-16.9); Immature Platelets 4.1 % (1.1-6.1); Mean Corpuscular HGB Conc 33.2 g/dL (31.6-35.5); Mean Corpuscular Hemoglobin 30.1 pg (28.0-33.3); Mean Corpuscular Volume 90.8 fL (83.0-100.0); Nucleated Red Blood Cells 1.5 /100 WBC (0); Platelet Count 49 K/mcL (140-400); Red Blood Count 2.72 M/mcL (4.19-5.50); Red Cell Distribution Width 13.7 % (11.5-14.5); White Blood Count 3.3 K/mcL (4.3-11.1)
[2021-03-27 06:30] LABS: INR 1.2; Prothrombin Time 13.8 Seconds (9.4-12.1)
[2021-03-27 06:40] LABS: BUN/Creatinine Ratio 55 (6-26); Blood Urea Nitrogen 32 mg/dL (8-23); Calcium 8.2 mg/dL (8.6-10.3); Carbon Dioxide 29 mEq/L (23-29); Chloride 98 mEq/L (98-107); Glucose 130 mg/dL (70-105); Magnesium 2.1 mg/dL (1.6-2.6); Osmolality,Calculated 287 (280-300); Potassium 3.9 mEq/L (3.5-5.1); Sodium 134 mEq/L (136-145); eGFR For African Americans > 60 (> 60); eGFR For Non-African Americans > 60 (> 60)
[2021-03-27 06:44] LABS: Lymphocytes # 0.5 K/mcL (0.6-4.6); Neutrophils # 2.7 K/mcL (1.6-8.9)
[2021-03-27 06:45] LABS: Monocytes # 0.1 K/mcL (0.0-1.3)
[2021-03-27 06:46] LABS: Platelet Estimate Decreased (Normal); Reactive Lymphocytes Present (Not Present)
[2021-03-27] MEDS: Sennosides 8.6 MG TABLET PO SCH ×2 (09:30→20:31)
[2021-03-27] MEDS: Cefepime HCl 2,000 MG in Water for inj. (sterile) 20 ML IVP SCH ×2 (09:30→15:17)
[2021-03-27] MEDS: amLODIPine 5 MG TABLET PO SCH (09:30)
[2021-03-27] MEDS: dexAMETHasone 4 MG TABLET PO SCH ×2 (09:30→20:31)
[2021-03-27] MEDS: Nicotine 14 MG PATCH.TD24 TD SCH (09:31)
[2021-03-27] MEDS: Vancomycin 1,250 MG/262.5 ML IV.SOLN IVPB SCH ×2 (10:17→22:48)
[2021-03-27] MEDS ORDERED: Perflutren Lipid Microsphere 1.3 ML in 0.9 % Sodium Chloride 8.7 ML IVP PRN (10:52)
[2021-03-27] MEDS ORDERED: *HR* OxyCODONE Immed Rel 5 MG TABLET PO PRN (13:12)
[2021-03-27] MEDS: Albumin 25% 25gram/100mL 25 GM/100 ML IV.SOLN IVPB SCH (15:16)
[2021-03-27] MEDS ORDERED: Capsaicin 0.025% 60 GM TUBE TP PRN (16:04)
[2021-03-27] MEDS: Temazepam 15 MG CAPSULE PO PRN (20:31)
[2021-03-27] MEDS: Melatonin 3 MG TABLET PO PRN (20:31)
[2021-03-27] MEDS: *HR* OxyCODONE Immed Rel 5 MG TABLET PO SCH (20:32)
[2021-03-27] MEDS ORDERED: Mirtazapine 15 MG TABLET PO SCH (21:00)
[2021-03-28] MEDS: Albumin 25% 25gram/100mL 25 GM/100 ML IV.SOLN IVPB SCH ×2 (00:30→10:28)
[2021-03-28] MEDS: Cefepime HCl 2,000 MG in Water for inj. (sterile) 20 ML IVP SCH ×4 (00:30→23:15)
[2021-03-28] MEDS: *HR* OxyCODONE Immed Rel 5 MG TABLET PO SCH ×7 (00:31→23:01)
[2021-03-28 01:36] LABS: Hematocrit 23.1 % (37.5-50.1); Hemoglobin 7.5 g/dL (12.9-16.9); Immature Platelets 4.2 % (1.1-6.1); Mean Corpuscular HGB Conc 32.5 g/dL (31.6-35.5); Mean Corpuscular Hemoglobin 30.2 pg (28.0-33.3); Mean Corpuscular Volume 93.1 fL (83.0-100.0); Mean Platelet Volume 9.9 fL (9.4-12.4); Nucleated Red Blood Cells 1.2 /100 WBC (0); Red Blood Count 2.48 M/mcL (4.19-5.50); Red Cell Distribution Width 13.8 % (11.5-14.5); White Blood Count 3.4 K/mcL (4.3-11.1)
[2021-03-28 01:40] LABS: Platelet Count 42 K/mcL (140-400)
[2021-03-28 01:52] LABS: Alanine Aminotransferase 75 Units/L (7-52); Albumin 3.1 g/dL (3.5-5.7); Albumin/Globulin Ratio 1.3 (1.1-2.2); Alkaline Phosphatase 262 Units/L (34-104); Aspartate Amino Transferase 47 Units/L (13-39); BUN/Creatinine Ratio 51 (6-26); Bilirubin,Total 0.9 mg/dL (0.3-1.0); Blood Urea Nitrogen 28 mg/dL (8-23); Calcium 8.1 mg/dL (8.6-10.3); Carbon Dioxide 27 mEq/L (23-29); Chloride 101 mEq/L (98-107); Globulin 2.4 g/dL (2.4-3.5); Glucose 167 mg/dL (70-105); Osmolality,Calculated 295 (280-300); Potassium 3.8 mEq/L (3.5-5.1); Sodium 138 mEq/L (136-145); Total Protein 5.5 g/dL (6.4-8.9); eGFR For African Americans > 60 (> 60); eGFR For Non-African Americans > 60 (> 60)
[2021-03-28 02:08] LABS: Neutrophils # 2.5 K/mcL (1.6-8.9)
[2021-03-28 02:09] LABS: Lymphocytes # 0.7 K/mcL (0.6-4.6)
[2021-03-28 02:10] LABS: Eosinophils # 0.1 K/mcL (0.0-0.6); Hypochromasia Present (Not Present); Monocytes # 0.1 K/mcL (0.0-1.3); Platelet Estimate Decreased (Normal)
[2021-03-28] MEDS: *HR* Enoxaparin 40 MG/0.4 ML SYRINGE SQ SCH (06:10)
[2021-03-28] MEDS: amLODIPine 5 MG TABLET PO SCH (10:30)
[2021-03-28] MEDS: dexAMETHasone 4 MG TABLET PO SCH (10:30)
[2021-03-28] MEDS: Sennosides 8.6 MG TABLET PO SCH ×2 (10:31→21:12)
[2021-03-28] MEDS: Nicotine 14 MG PATCH.TD24 TD SCH (19:56)
[2021-03-28] MEDS: Mirtazapine 15 MG TABLET PO SCH (21:12)
[2021-03-28 23:45] LABS: Hematocrit 22.4 % (37.5-50.1); Hemoglobin 7.3 g/dL (12.9-16.9); Immature Platelets 3.7 % (1.1-6.1); Mean Corpuscular HGB Conc 32.6 g/dL (31.6-35.5); Mean Corpuscular Hemoglobin 30.2 pg (28.0-33.3); Mean Corpuscular Volume 92.6 fL (83.0-100.0); Mean Platelet Volume 10.4 fL (9.4-12.4); Nucleated Red Blood Cells 1.8 /100 WBC (0); Red Blood Count 2.42 M/mcL (4.19-5.50); Red Cell Distribution Width 13.6 % (11.5-14.5)
[2021-03-28 23:47] LABS: Platelet Count 39 K/mcL (140-400)
[2021-03-29 00:03] LABS: Alanine Aminotransferase 83 Units/L (7-52); Albumin 3.4 g/dL (3.5-5.7); Albumin/Globulin Ratio 1.5 (1.1-2.2); Alkaline Phosphatase 274 Units/L (34-104); Aspartate Amino Transferase 61 Units/L (13-39); BUN/Creatinine Ratio 52 (6-26); Blood Urea Nitrogen 27 mg/dL (8-23); Calcium 8.4 mg/dL (8.6-10.3); Carbon Dioxide 28 mEq/L (23-29); Chloride 102 mEq/L (98-107); Globulin 2.3 g/dL (2.4-3.5); Glucose 136 mg/dL (70-105); Osmolality,Calculated 293 (280-300); Potassium 4.1 mEq/L (3.5-5.1); Sodium 138 mEq/L (136-145); Total Protein 5.7 g/dL (6.4-8.9); eGFR For African Americans > 60 (> 60); eGFR For Non-African Americans > 60 (> 60)
[2021-03-29 00:05] LABS: Eosinophils # 0.1 K/mcL (0.0-0.6); Hypochromasia Present (Not Present); Lymphocytes # 0.8 K/mcL (0.6-4.6); Monocytes # 0.2 K/mcL (0.0-1.3); Neutrophils # 2.7 K/mcL (1.6-8.9); Platelet Estimate Marked Decrease (Normal)
[2021-03-29] MEDS: *HR* OxyCODONE Immed Rel 5 MG TABLET PO SCH ×6 (03:35→23:17)
[2021-03-29] MEDS: *HR* Enoxaparin 40 MG/0.4 ML SYRINGE SQ SCH (05:25)
[2021-03-29] MEDS: Sennosides 8.6 MG TABLET PO SCH ×2 (08:20→21:54)
[2021-03-29] MEDS: Cefepime HCl 2,000 MG in Water for inj. (sterile) 20 ML IVP SCH ×3 (08:20→23:15)
[2021-03-29] MEDS ORDERED: dexAMETHasone 4 MG TABLET PO SCH (09:00)
[2021-03-29] MEDS: *HR* LORazepam 0.5 MG TABLET PO PRN (15:20)
[2021-03-29 18:47] LABS: Hepatitis B Surface Antigen Nonreactive (Nonreactive)
[2021-03-29 19:16] LABS: HIV-1&2 Antibody & p24 Ag Nonreactive (Nonreactive)
[2021-03-29 19:17] LABS: Hepatitis B Core IgM Nonreactive (Nonreactive)
[2021-03-29 19:18] LABS: Hepatitis A Antibody IgM Nonreactive (Nonreactive)
[2021-03-29] MEDS: Mirtazapine 15 MG TABLET PO SCH (21:54)
[2021-03-29] MEDS: *HR* FentaNYL PATCH 25 MCG PATCH TD SCH (21:55)
[2021-03-29 22:06] LABS: Hepatitis C Virus Antibody Reactive (Nonreactive)
[2021-03-30] MEDS: *HR* OxyCODONE Immed Rel 5 MG TABLET PO SCH ×6 (04:15→23:32)
[2021-03-30 05:47] LABS: BUN/Creatinine Ratio 53 (6-26); Blood Urea Nitrogen 25 mg/dL (8-23); Carbon Dioxide 24 mEq/L (23-29); Chloride 102 mEq/L (98-107); Glucose 115 mg/dL (70-105); Osmolality,Calculated 289 (280-300); Sodium 137 mEq/L (136-145); eGFR For African Americans > 60 (> 60); eGFR For Non-African Americans > 60 (> 60)
[2021-03-30] MEDS: Sennosides 8.6 MG TABLET PO SCH ×2 (08:42→21:08)
[2021-03-30] MEDS: allopurinoL 300 MG TABLET PO SCH (08:42)
[2021-03-30] MEDS: Cefepime HCl 2,000 MG in Water for inj. (sterile) 20 ML IVP SCH ×3 (08:49→23:34)
[2021-03-30 09:31] LABS: Hematocrit 23.3 % (37.5-50.1); Hemoglobin 7.8 g/dL (12.9-16.9); Mean Corpuscular HGB Conc 33.5 g/dL (31.6-35.5); Mean Corpuscular Hemoglobin 30.1 pg (28.0-33.3); Red Blood Count 2.59 M/mcL (4.19-5.50); Red Cell Distribution Width 13.9 % (11.5-14.5); White Blood Count 4.1 K/mcL (4.3-11.1)
[2021-03-30 09:51] LABS: Platelet Count 28 K/mcL (140-400)
[2021-03-30] MEDS ORDERED: 0.9 % Sodium Chloride 250 ML ONE (20:53)
[2021-03-30] MEDS: Melatonin 3 MG TABLET PO PRN (21:08)
[2021-03-30] MEDS: *HR* LORazepam 0.5 MG TABLET PO PRN (21:08)
[2021-03-30] MEDS: Mirtazapine 15 MG TABLET PO SCH (21:08)
[2021-03-30] MEDS: Potassium Chloride Elixir 20 MEQ/15 ML UDC PO SCH (21:09)
[2021-03-31 02:33] LABS: Hemoglobin 7.6 g/dL (12.9-16.9)
[2021-03-31 02:35] LABS: Hematocrit 21.8 % (37.5-50.1); Immature Platelets 4.3 % (1.1-6.1); Mean Corpuscular HGB Conc 34.9 g/dL (31.6-35.5); Mean Platelet Volume 9.4 fL (9.4-12.4); Red Blood Count 2.45 M/mcL (4.19-5.50)
[2021-03-31 02:42] LABS: Platelet Count 56 K/mcL (140-400)
[2021-03-31 02:43] LABS: BUN/Creatinine Ratio 40 (6-26); Blood Urea Nitrogen 23 mg/dL (8-23); Calcium 8.6 mg/dL (8.6-10.3); Carbon Dioxide 27 mEq/L (23-29); Chloride 101 mEq/L (98-107); Glucose 127 mg/dL (70-105); Osmolality,Calculated 285 (280-300); Potassium 4.1 mEq/L (3.5-5.1); Sodium 135 mEq/L (136-145); eGFR For African Americans > 60 (> 60); eGFR For Non-African Americans > 60 (> 60)
[2021-03-31] MEDS: *HR* OxyCODONE Immed Rel 5 MG TABLET PO SCH ×2 (03:08→07:34)
[2021-03-31] MEDS ORDERED: *HR* Metoprolol 5 MG/5 ML VIAL IVP ONE (06:47)
[2021-03-31] MEDS: Sennosides 8.6 MG TABLET PO SCH ×2 (07:34→19:46)
[2021-03-31] MEDS: allopurinoL 300 MG TABLET PO SCH (07:35)
[2021-03-31] MEDS: Cefepime HCl 2,000 MG in Water for inj. (sterile) 20 ML IVP SCH ×2 (07:35→16:03)
[2021-03-31] MEDS: Potassium Chloride Elixir 20 MEQ/15 ML UDC PO SCH ×2 (07:36→19:47)
[2021-03-31] MEDS ORDERED: *HR* LORazepam 2 MG/ML VIAL IVP PRN (10:30)
[2021-03-31] MEDS ORDERED: Hydrocortisone Sodium Succ 100 MG/2 ML VIAL IVP PRN (10:30)
[2021-03-31] MEDS ORDERED: Dexamethasone 10 MG/ML VIAL IVP ONE (10:30)
[2021-03-31] MEDS ORDERED: Fosaprepitant Dimeglumine 150 MG in 0.9 % Sodium Chloride 150 ML IVPB ONE (10:30)
[2021-03-31] MEDS ORDERED: EPINEPHrine 1 MG/ML VIAL SQ PRN (10:30)
[2021-03-31] MEDS ORDERED: Atezolizumab 1,200 MG in 0.9 % Sodium Chloride 250 ML IV ONE (11:00)
[2021-03-31] MEDS: 0.9 % Sodium Chloride 500 ML IVC SCH (11:14)
[2021-03-31 11:57] LABS: Nucleated Red Blood Cells 1.2 /100 WBC (0)
[2021-03-31] MEDS ORDERED: SODIUM CHLORIDE EXCEL BG 0.9% IVPB ONE (12:00)
[2021-03-31] MEDS ORDERED: ETOPOSIDE IVPB ONE (12:00)
[2021-03-31] MEDS: *HR* FentaNYL PATCH 75 MCG PATCH TD SCH (12:01)
[2021-03-31 12:44] LABS: Lymphocytes # 0.9 K/mcL (0.6-4.6); Monocytes # 0.3 K/mcL (0.0-1.3); Neutrophils # 2.6 K/mcL (1.6-8.9); Platelet Estimate Decreased (Normal)
[2021-03-31] MEDS ORDERED: CARBOPLATIN IV ONE (13:00)
[2021-03-31] MEDS ORDERED: SODIUM CHLORIDE 0.9% IV ONE (13:00)
[2021-03-31] MEDS: *HR* OxyCODONE Immed Rel 5 MG TABLET PO PRN (19:46)
[2021-03-31] MEDS: Mirtazapine 15 MG TABLET PO SCH (19:47)
[2021-03-31] MEDS: *HR* LORazepam 0.5 MG TABLET PO PRN (21:25)
[2021-04-01 03:34] LABS: Hemoglobin 7.2 g/dL (12.9-16.9); Red Cell Distribution Width 14.2 % (11.5-14.5)
[2021-04-01 03:36] LABS: Hematocrit 22.1 % (37.5-50.1); Immature Platelets 4.8 % (1.1-6.1); Mean Corpuscular HGB Conc 32.6 g/dL (31.6-35.5); Mean Corpuscular Hemoglobin 30.3 pg (28.0-33.3); Mean Corpuscular Volume 92.9 fL (83.0-100.0); Mean Platelet Volume 10.3 fL (9.4-12.4); Red Blood Count 2.38 M/mcL (4.19-5.50); White Blood Count 3.9 K/mcL (4.3-11.1)
[2021-04-01 03:51] LABS: BUN/Creatinine Ratio 41 (6-26); Blood Urea Nitrogen 24 mg/dL (8-23); Calcium 8.3 mg/dL (8.6-10.3); Carbon Dioxide 25 mEq/L (23-29); Chloride 103 mEq/L (98-107); Glucose 159 mg/dL (70-105); Osmolality,Calculated 287 (280-300); Potassium 4.1 mEq/L (3.5-5.1); Sodium 135 mEq/L (136-145); eGFR For African Americans > 60 (> 60); eGFR For Non-African Americans > 60 (> 60)
[2021-04-01] MEDS: *HR* OxyCODONE Immed Rel 5 MG TABLET PO PRN ×3 (05:07→16:44)
[2021-04-01] MEDS: Cefepime HCl 2,000 MG in Water for inj. (sterile) 20 ML IVP SCH ×2 (07:36)
[2021-04-01] MEDS: 0.9 % Sodium Chloride 500 ML IVC SCH ×2 (07:36→14:25)
[2021-04-01] MEDS: allopurinoL 300 MG TABLET PO SCH (07:38)
[2021-04-01] MEDS: Potassium Chloride Elixir 20 MEQ/15 ML UDC PO SCH ×2 (07:38→20:21)
[2021-04-01] MEDS: Sennosides 8.6 MG TABLET PO SCH ×2 (07:38→20:21)
[2021-04-01] MEDS ORDERED: *HR* Metoprolol 5 MG/5 ML VIAL IVP ONE (07:53)
[2021-04-01 08:26] LABS: Phosphorous 3.1 mg/dL (2.7-4.5)
[2021-04-01 11:07] LABS: ANA IgG by ELISA NONE DETECTED (None Detected)
[2021-04-01] MEDS ORDERED: Sennosides/Docusate Sodium TABLET PO PRN (12:27)
[2021-04-01] MEDS ORDERED: EPINEPHrine 1 MG/ML VIAL SQ PRN (13:00)
[2021-04-01] MEDS ORDERED: SODIUM CHLORIDE EXCEL BG 0.9% IVPB ONE (13:00)
[2021-04-01] MEDS ORDERED: Hydrocortisone Sodium Succ 100 MG/2 ML VIAL IVP PRN (13:00)
[2021-04-01] MEDS ORDERED: ETOPOSIDE IVPB ONE (13:00)
[2021-04-01] MEDS ORDERED: *HR* LORazepam 2 MG/ML VIAL IVP PRN (13:00)
[2021-04-01] MEDS ORDERED: 0.9 % Sodium Chloride 250 ML ONE ×2 (13:56→16:40)
[2021-04-01] MEDS: Mirtazapine 15 MG TABLET PO SCH (20:21)
[2021-04-01] MEDS: Melatonin 3 MG TABLET PO PRN (20:22)
[2021-04-01] MEDS ORDERED: polyethylene glycoL 3350 17 GM POWD.PACK PO ONE (21:59)
[2021-04-02] MEDS ORDERED: Milk and Molasses Enema 200 ML RC ONE (01:18)
[2021-04-02 06:45] LABS: Hematocrit 20.7 % (37.5-50.1)
[2021-04-02 06:47] LABS: Hemoglobin 6.8 g/dL (12.9-16.9); Immature Platelets 4.1 % (1.1-6.1); Mean Corpuscular HGB Conc 32.9 g/dL (31.6-35.5); Mean Corpuscular Volume 91.2 fL (83.0-100.0); Mean Platelet Volume 10.5 fL (9.4-12.4); Nucleated Red Blood Cells 0.7 /100 WBC (0); Red Blood Count 2.27 M/mcL (4.19-5.50); Red Cell Distribution Width 14.2 % (11.5-14.5); White Blood Count 2.9 K/mcL (4.3-11.1)
[2021-04-02 06:49] LABS: Platelet Count 62 K/mcL (140-400)
[2021-04-02 06:59] LABS: Alanine Aminotransferase 98 Units/L (7-52); Albumin 3.1 g/dL (3.5-5.7); Albumin/Globulin Ratio 1.2 (1.1-2.2); Alkaline Phosphatase 351 Units/L (34-104); Aspartate Amino Transferase 72 Units/L (13-39); BUN/Creatinine Ratio 40 (6-26); Bilirubin,Total 1.6 mg/dL (0.3-1.0); Blood Urea Nitrogen 19 mg/dL (8-23); Calcium 8.1 mg/dL (8.6-10.3); Carbon Dioxide 26 mEq/L (23-29); Chloride 98 mEq/L (98-107); Globulin 2.6 g/dL (2.4-3.5); Glucose 118 mg/dL (70-105); Osmolality,Calculated 279 (280-300); Sodium 133 mEq/L (136-145); Total Protein 5.7 g/dL (6.4-8.9); eGFR For African Americans > 60 (> 60); eGFR For Non-African Americans > 60 (> 60)
[2021-04-02 07:13] LABS: Eosinophils # 0.2 K/mcL (0.0-0.6); Lymphocytes # 0.5 K/mcL (0.6-4.6); Monocytes # 0.2 K/mcL (0.0-1.3); Neutrophils # 2.1 K/mcL (1.6-8.9); Platelet Estimate Decreased (Normal); Reactive Lymphocytes Present (Not Present)
[2021-04-02] MEDS: allopurinoL 300 MG TABLET PO SCH (08:23)
[2021-04-02] MEDS: Potassium Chloride Elixir 20 MEQ/15 ML UDC PO SCH ×2 (08:23→21:34)
[2021-04-02] MEDS: Sennosides 8.6 MG TABLET PO SCH ×2 (08:23→21:33)
[2021-04-02] MEDS ORDERED: *HR* Metoprolol 5 MG/5 ML VIAL IVP ONE (08:55)
[2021-04-02] MEDS: *HR* OxyCODONE Immed Rel 5 MG TABLET PO PRN (09:45)
[2021-04-02] MEDS: *HR* LORazepam 0.5 MG TABLET PO PRN (09:46)
[2021-04-02] MEDS ORDERED: 0.9 % Sodium Chloride 250 ML ONE (11:29)
[2021-04-02] MEDS: Acetaminophen 325 MG TABLET PO PRN (15:21)
[2021-04-02 17:58] LABS: % Iron Saturation 34 % (20-55); Iron 89 mcg/dL (65-175); Transferrin 187 mg/dL (203-362)
[2021-04-02 19:52] LABS: Folate 14.8 ng/mL (3.0-16.0)
[2021-04-02 19:54] LABS: Vitamin B12 > 1500 pg/mL (250-1100)
[2021-04-02] MEDS: *HR* LORazepam 0.5 MG TABLET SL PRN (21:34)
[2021-04-02] MEDS: Melatonin 3 MG TABLET PO PRN (21:34)
[2021-04-02] MEDS: Mirtazapine 15 MG TABLET PO SCH (21:34)
[2021-04-03] MEDS: Acetaminophen 325 MG TABLET PO PRN (04:30)
[2021-04-03 05:08] LABS: Red Blood Count 2.34 M/mcL (4.19-5.50)
[2021-04-03 05:10] LABS: Hematocrit 21.1 % (37.5-50.1); Immature Platelets 4.1 % (1.1-6.1); Mean Corpuscular HGB Conc 33.2 g/dL (31.6-35.5); Mean Corpuscular Hemoglobin 29.9 pg (28.0-33.3); Mean Corpuscular Volume 90.2 fL (83.0-100.0); Mean Platelet Volume 10.2 fL (9.4-12.4); Red Cell Distribution Width 14.3 % (11.5-14.5); White Blood Count 2.1 K/mcL (4.3-11.1)
[2021-04-03 05:13] LABS: Platelet Count 40 K/mcL (140-400)
[2021-04-03 05:30] LABS: Alanine Aminotransferase 86 Units/L (7-52); Albumin 2.9 g/dL (3.5-5.7); Albumin/Globulin Ratio 1.2 (1.1-2.2); Alkaline Phosphatase 355 Units/L (34-104); Aspartate Amino Transferase 68 Units/L (13-39); BUN/Creatinine Ratio 37 (6-26); Bilirubin,Total 2.2 mg/dL (0.3-1.0); Blood Urea Nitrogen 14 mg/dL (8-23); Calcium 7.9 mg/dL (8.6-10.3); Carbon Dioxide 26 mEq/L (23-29); Chloride 100 mEq/L (98-107); Globulin 2.4 g/dL (2.4-3.5); Glucose 128 mg/dL (70-105); Osmolality,Calculated 278 (280-300); Sodium 133 mEq/L (136-145); Total Protein 5.3 g/dL (6.4-8.9); eGFR For African Americans > 60 (> 60); eGFR For Non-African Americans > 60 (> 60)
[2021-04-03 06:18] LABS: Lymphocytes # 0.3 K/mcL (0.6-4.6); Neutrophils # 1.7 K/mcL (1.6-8.9); Platelet Estimate Decreased (Normal); Reactive Lymphocytes Present (Not Present); Smudge Cells Present (Not Present)
[2021-04-03] MEDS ORDERED: 0.9 % Sodium Chloride 250 ML IVC SCH (07:30)
[2021-04-03] MEDS: Sennosides 8.6 MG TABLET PO SCH ×2 (07:56→21:26)
[2021-04-03] MEDS: Potassium Chloride Elixir 20 MEQ/15 ML UDC PO SCH ×2 (07:56→21:36)
[2021-04-03] MEDS: allopurinoL 300 MG TABLET PO SCH (07:56)
[2021-04-03] MEDS: *HR* FentaNYL PATCH 75 MCG PATCH TD SCH (12:54)
[2021-04-03] MEDS: Mirtazapine 15 MG TABLET PO SCH (21:26)
[2021-04-03] MEDS: Melatonin 3 MG TABLET PO PRN (21:27)
[2021-04-03] MEDS: *HR* LORazepam 0.5 MG TABLET SL PRN (21:27)
[2021-04-04 06:58] LABS: Hematocrit 19.9 % (37.5-50.1); Red Cell Distribution Width 14.5 % (11.5-14.5)
[2021-04-04 07:00] LABS: Hemoglobin 6.5 g/dL (12.9-16.9); Immature Platelets 3.6 % (1.1-6.1); Mean Corpuscular HGB Conc 32.7 g/dL (31.6-35.5); Mean Corpuscular Hemoglobin 29.7 pg (28.0-33.3); Mean Corpuscular Volume 90.9 fL (83.0-100.0); Mean Platelet Volume 10.4 fL (9.4-12.4); Red Blood Count 2.19 M/mcL (4.19-5.50); White Blood Count 1.5 K/mcL (4.3-11.1)
[2021-04-04 07:02] LABS: Platelet Count 49 K/mcL (140-400)
[2021-04-04 07:19] LABS: Anisocytosis 1+ (Not Present); Neutrophils # 1.5 K/mcL (1.6-8.9); Platelet Estimate Marked Decrease (Normal)
[2021-04-04] MEDS ORDERED: 0.9 % Sodium Chloride 250 ML IVC SCH (07:45)
[2021-04-04 07:51] LABS: HCV Quant Interpretation DETECTED (Not Detected)
[2021-04-04 08:07] LABS: Alanine Aminotransferase 72 Units/L (7-52); Albumin 2.8 g/dL (3.5-5.7); Alkaline Phosphatase 351 Units/L (34-104); Aspartate Amino Transferase 53 Units/L (13-39); BUN/Creatinine Ratio 32 (6-26); Bilirubin,Total 2.2 mg/dL (0.3-1.0); Blood Urea Nitrogen 12 mg/dL (8-23); Calcium 7.9 mg/dL (8.6-10.3); Carbon Dioxide 26 mEq/L (23-29); Chloride 99 mEq/L (98-107); Globulin 2.7 g/dL (2.4-3.5); Glucose 113 mg/dL (70-105); Osmolality,Calculated 277 (280-300); Potassium 3.8 mEq/L (3.5-5.1); Sodium 133 mEq/L (136-145); Total Protein 5.5 g/dL (6.4-8.9); eGFR For African Americans > 60 (> 60); eGFR For Non-African Americans > 60 (> 60)
[2021-04-04] MEDS: Potassium Chloride Elixir 20 MEQ/15 ML UDC PO SCH ×2 (08:11→21:19)
[2021-04-04] MEDS: allopurinoL 300 MG TABLET PO SCH (08:11)
[2021-04-04] MEDS: Sennosides 8.6 MG TABLET PO SCH ×2 (08:11→21:19)
[2021-04-04] MEDS ORDERED: Furosemide 40 MG/4 ML VIAL IVP ONE (12:36)
[2021-04-04] MEDS ORDERED: *HR* Metoprolol 5 MG/5 ML VIAL IVP ONE (12:42)
[2021-04-04] MEDS: *HR* LORazepam 0.5 MG TABLET SL PRN ×2 (14:05→21:27)
[2021-04-04] MEDS: Acetaminophen IV 1,000 MG/100 ML BAG IVPB SCH ×2 (18:09→23:50)
[2021-04-04] MEDS: Mirtazapine 15 MG TABLET PO SCH (21:19)
[2021-04-05 02:53] LABS: Basophils % 0.8 %; Eosinophils % 1.6 %; Hematocrit 21.1 % (37.5-50.1); Hemoglobin 7.4 g/dL (12.9-16.9); Immature Granulocytes % 2.3 % (0-4); Immature Platelets 3.1 % (1.1-6.1); Lymphocytes # 0.2 K/mcL (0.6-4.6); Lymphocytes % 13.2 %; Mean Corpuscular HGB Conc 35.1 g/dL (31.6-35.5); Mean Corpuscular Hemoglobin 31.2 pg (28.0-33.3); Mean Platelet Volume 9.6 fL (9.4-12.4); Monocytes % 2.3 %; Platelet Count 34 K/mcL (140-400); Red Blood Count 2.37 M/mcL (4.19-5.50); Red Cell Distribution Width 14.2 % (11.5-14.5); Segmented Neutrophils % 79.8 %; White Blood Count 1.3 K/mcL (4.3-11.1)
[2021-04-05 03:12] LABS: Alanine Aminotransferase 67 Units/L (7-52); Albumin 2.8 g/dL (3.5-5.7); Alkaline Phosphatase 316 Units/L (34-104); Aspartate Amino Transferase 50 Units/L (13-39); BUN/Creatinine Ratio 35 (6-26); Bilirubin,Total 1.9 mg/dL (0.3-1.0); Blood Urea Nitrogen 14 mg/dL (8-23); Calcium 7.7 mg/dL (8.6-10.3); Carbon Dioxide 25 mEq/L (23-29); Chloride 99 mEq/L (98-107); Globulin 2.8 g/dL (2.4-3.5); Glucose 132 mg/dL (70-105); Osmolality,Calculated 280 (280-300); Potassium 3.9 mEq/L (3.5-5.1); Sodium 134 mEq/L (136-145); Total Protein 5.6 g/dL (6.4-8.9); eGFR For African Americans > 60 (> 60); eGFR For Non-African Americans > 60 (> 60)
[2021-04-05 03:15] LABS: Anisocytosis 1+ (Not Present); Platelet Estimate Marked Decrease (Normal)
[2021-04-05] MEDS: Acetaminophen IV 1,000 MG/100 ML BAG IVPB SCH ×3 (05:20→17:43)
[2021-04-05] MEDS: Potassium Chloride Elixir 20 MEQ/15 ML UDC PO SCH ×2 (08:52→21:49)
[2021-04-05] MEDS: allopurinoL 300 MG TABLET PO SCH (08:52)
[2021-04-05] MEDS: Sennosides 8.6 MG TABLET PO SCH ×2 (08:52→21:49)
[2021-04-05] MEDS: *HR* LORazepam 0.5 MG TABLET SL PRN (12:34)
[2021-04-05] MEDS: Furosemide 40 MG/4 ML VIAL IVP SCH (15:28)
[2021-04-05] MEDS ORDERED: CLEAR EYES NATURAL TEARS 15 ML BOTTLE BOTH EYES PRN (15:44)
[2021-04-05] MEDS ORDERED: 0.9 % Sodium Chloride 250 ML IVC SCH (18:15)
[2021-04-05] MEDS ORDERED: *HR* Metoprolol 5 MG/5 ML VIAL IVP ONE (18:36)
[2021-04-05] MEDS: 0.9 % Sodium Chloride 500 ML IVC SCH (20:57)
[2021-04-05] MEDS: Mirtazapine 15 MG TABLET PO SCH (21:49)
[2021-04-06 01:28] LABS: Eosinophils % 0.8 %; Hematocrit 22.1 % (37.5-50.1); Hemoglobin 7.4 g/dL (12.9-16.9); Immature Granulocytes % 11.3 % (0-4); Immature Platelets 3.8 % (1.1-6.1); Lymphocytes # 0.2 K/mcL (0.6-4.6); Lymphocytes % 12.9 %; Mean Corpuscular HGB Conc 33.5 g/dL (31.6-35.5); Mean Corpuscular Hemoglobin 30.1 pg (28.0-33.3); Mean Corpuscular Volume 89.8 fL (83.0-100.0); Mean Platelet Volume 10.7 fL (9.4-12.4); Monocytes # 0.1 K/mcL (0.0-1.3); Neutrophils # 0.9 K/mcL (1.6-8.9); Nucleated Red Blood Cells 1.6 /100 WBC (0); Red Blood Count 2.46 M/mcL (4.19-5.50); Red Cell Distribution Width 14.2 % (11.5-14.5); White Blood Count 1.2 K/mcL (4.3-11.1)
[2021-04-06 01:29] LABS: Platelet Count 39 K/mcL (140-400)
[2021-04-06 01:41] LABS: Anisocytosis 1+ (Not Present); Platelet Estimate Marked Decrease (Normal)
[2021-04-06 01:47] LABS: Alanine Aminotransferase 61 Units/L (7-52); Alkaline Phosphatase 318 Units/L (34-104); Aspartate Amino Transferase 46 Units/L (13-39); BUN/Creatinine Ratio 39 (6-26); Bilirubin,Total 2.1 mg/dL (0.3-1.0); Blood Urea Nitrogen 16 mg/dL (8-23); Calcium 8.1 mg/dL (8.6-10.3); Carbon Dioxide 26 mEq/L (23-29); Chloride 97 mEq/L (98-107); Globulin 3.1 g/dL (2.4-3.5); Glucose 121 mg/dL (70-105); Osmolality,Calculated 278 (280-300); Potassium 3.8 mEq/L (3.5-5.1); Sodium 133 mEq/L (136-145); Total Protein 6.1 g/dL (6.4-8.9); eGFR For African Americans > 60 (> 60); eGFR For Non-African Americans > 60 (> 60)
[2021-04-06] MEDS: Acetaminophen IV 1,000 MG/100 ML BAG IVPB SCH ×3 (01:50→11:45)
[2021-04-06] MEDS: carvediloL 6.25 MG TABLET PO SCH ×2 (08:39→10:16)
[2021-04-06] MEDS: allopurinoL 300 MG TABLET PO SCH (09:04)
[2021-04-06] MEDS: Potassium Chloride Elixir 20 MEQ/15 ML UDC PO SCH ×2 (09:04→19:45)
[2021-04-06] MEDS: Sennosides 8.6 MG TABLET PO SCH ×2 (09:04→19:45)
[2021-04-06] MEDS ORDERED: Saline Nasal Spray 44 ML BOTTLE NS PRN (10:02)
[2021-04-06] MEDS: Furosemide 40 MG/4 ML VIAL IVP SCH (10:12)
[2021-04-06] MEDS: *HR* FentaNYL PATCH 75 MCG PATCH TD SCH (11:51)
[2021-04-06] MEDS: *HR* LORazepam 0.5 MG TABLET SL PRN (13:16)
[2021-04-06] MEDS ORDERED: carvediloL 6.25 MG TABLET PO SCH (17:00)
[2021-04-06] MEDS: Furosemide 20 MG/2 ML VIAL IVP SCH (17:38)
[2021-04-06] MEDS: Mirtazapine 15 MG TABLET PO SCH (19:45)
[2021-04-07 06:46] LABS: Hemoglobin 6.3 g/dL (12.9-16.9); Mean Corpuscular Volume 88.7 fL (83.0-100.0); Mean Platelet Volume 10.6 fL (9.4-12.4); Nucleated Red Blood Cells 4.9 /100 WBC (0); Red Blood Count 2.03 M/mcL (4.19-5.50); Red Cell Distribution Width 14.3 % (11.5-14.5); White Blood Count 1.2 K/mcL (4.3-11.1)
[2021-04-07 07:06] LABS: Platelet Count 19 K/mcL (140-400)
[2021-04-07 07:15] LABS: BUN/Creatinine Ratio 38 (6-26); Blood Urea Nitrogen 15 mg/dL (8-23); Calcium 7.7 mg/dL (8.6-10.3); Carbon Dioxide 26 mEq/L (23-29); Chloride 95 mEq/L (98-107); Glucose 136 mg/dL (70-105); Magnesium 1.8 mg/dL (1.6-2.6); Osmolality,Calculated 275 (280-300); Phosphorous 3.6 mg/dL (2.7-4.5); Potassium 3.5 mEq/L (3.5-5.1); Sodium 131 mEq/L (136-145); eGFR For African Americans > 60 (> 60); eGFR For Non-African Americans > 60 (> 60)
[2021-04-07] MEDS ORDERED: 0.9 % Sodium Chloride 250 ML IVC SCH (07:30)
[2021-04-07] MEDS: carvediloL 6.25 MG TABLET PO SCH ×2 (07:52→18:01)
[2021-04-07] MEDS: Sennosides 8.6 MG TABLET PO SCH ×2 (07:53→22:33)
[2021-04-07] MEDS: allopurinoL 300 MG TABLET PO SCH (07:53)
[2021-04-07] MEDS: Potassium Chloride Elixir 20 MEQ/15 ML UDC PO SCH ×2 (07:55→22:32)
[2021-04-07] MEDS: Furosemide 20 MG/2 ML VIAL IVP SCH ×2 (07:58→18:01)
[2021-04-07 09:22] LABS: Lymphocytes # 0.2 K/mcL (0.6-4.6); Neutrophils # 0.9 K/mcL (1.6-8.9)
[2021-04-07 09:23] LABS: Anisocytosis 1+ (Not Present); Microcytosis Present (Not Present)
[2021-04-07 09:24] LABS: Hypochromasia Present (Not Present); Polychromasia 1+ (Not Present); Reactive Lymphocytes Present (Not Present)
[2021-04-07 09:25] LABS: Platelet Estimate Marked Decrease (Normal)
[2021-04-07 19:12] LABS: Red Cell Distribution Width 14.4 % (11.5-14.5)
[2021-04-07 19:14] LABS: Hematocrit 21.3 % (37.5-50.1); Hemoglobin 7.3 g/dL (12.9-16.9); Immature Platelets 4.1 % (1.1-6.1); Mean Corpuscular HGB Conc 34.3 g/dL (31.6-35.5); Mean Corpuscular Hemoglobin 30.4 pg (28.0-33.3); Mean Corpuscular Volume 88.8 fL (83.0-100.0); Mean Platelet Volume 10.2 fL (9.4-12.4); Red Blood Count 2.4 M/mcL (4.19-5.50); White Blood Count 1.3 K/mcL (4.3-11.1)
[2021-04-07] MEDS: Mirtazapine 15 MG TABLET PO SCH (22:33)
[2021-04-08 04:32] LABS: Basophils % 0.7 %; Hemoglobin 7.1 g/dL (12.9-16.9); Immature Granulocytes % 9.2 % (0-4); Immature Platelets 5.9 % (1.1-6.1); Lymphocytes # 0.2 K/mcL (0.6-4.6); Lymphocytes % 11.1 %; Mean Corpuscular HGB Conc 33.8 g/dL (31.6-35.5); Mean Corpuscular Hemoglobin 29.8 pg (28.0-33.3); Mean Corpuscular Volume 88.2 fL (83.0-100.0); Mean Platelet Volume 10.6 fL (9.4-12.4); Monocytes # 0.1 K/mcL (0.0-1.3); Monocytes % 5.2 %; Neutrophils # 1.1 K/mcL (1.6-8.9); Nucleated Red Blood Cells 5.9 /100 WBC (0); Red Blood Count 2.38 M/mcL (4.19-5.50); Red Cell Distribution Width 14.4 % (11.5-14.5); Segmented Neutrophils % 73.8 %; White Blood Count 1.5 K/mcL (4.3-11.1)
[2021-04-08 04:37] LABS: Platelet Count 25 K/mcL (140-400)
[2021-04-08 04:47] LABS: Alanine Aminotransferase 48 Units/L (7-52); Albumin 2.7 g/dL (3.5-5.7); Alkaline Phosphatase 371 Units/L (34-104); Aspartate Amino Transferase 50 Units/L (13-39); BUN/Creatinine Ratio 37 (6-26); Bilirubin,Total 1.9 mg/dL (0.3-1.0); Blood Urea Nitrogen 16 mg/dL (8-23); Calcium 7.6 mg/dL (8.6-10.3); Carbon Dioxide 27 mEq/L (23-29); Chloride 97 mEq/L (98-107); Globulin 2.7 g/dL (2.4-3.5); Glucose 130 mg/dL (70-105); Magnesium 1.8 mg/dL (1.6-2.6); Osmolality,Calculated 277 (280-300); Phosphorous 3.3 mg/dL (2.7-4.5); Potassium 3.8 mEq/L (3.5-5.1); Sodium 132 mEq/L (136-145); Total Protein 5.4 g/dL (6.4-8.9); eGFR For African Americans > 60 (> 60); eGFR For Non-African Americans > 60 (> 60)
[2021-04-08 05:22] LABS: Platelet Estimate Marked Decrease (Normal); Polychromasia 1+ (Not Present); Toxic Granulation Present (Not Present)
[2021-04-08] MEDS: carvediloL 6.25 MG TABLET PO SCH ×2 (10:25→17:16)
[2021-04-08] MEDS: Potassium Chloride Elixir 20 MEQ/15 ML UDC PO SCH ×2 (10:25→23:21)
[2021-04-08] MEDS: allopurinoL 300 MG TABLET PO SCH (10:26)
[2021-04-08] MEDS: Sennosides 8.6 MG TABLET PO SCH (10:26)
[2021-04-08] MEDS: Furosemide 20 MG/2 ML VIAL IVP SCH ×2 (10:26→17:17)
[2021-04-08] MEDS: *HR* LORazepam 0.5 MG TABLET SL PRN (20:23)
[2021-04-08] MEDS: Mirtazapine 15 MG TABLET PO SCH (23:21)
[2021-04-08] MEDS ORDERED: *HR* LORazepam 2 MG/ML VIAL IVP ONE (23:52)
[2021-04-09] MEDS: Sennosides 8.6 MG TABLET PO SCH ×3 (00:02→19:38)
[2021-04-09 04:25] LABS: Basophils % 0.6 %; Hemoglobin 7.4 g/dL (12.9-16.9); Immature Granulocytes % 8.8 % (0-4); Immature Platelets 9.2 % (1.1-6.1); Lymphocytes # 0.2 K/mcL (0.6-4.6); Lymphocytes % 9.4 %; Mean Corpuscular HGB Conc 35.2 g/dL (31.6-35.5); Mean Corpuscular Volume 87.9 fL (83.0-100.0); Mean Platelet Volume 12.1 fL (9.4-12.4); Monocytes # 0.1 K/mcL (0.0-1.3); Neutrophils # 1.2 K/mcL (1.6-8.9); Nucleated Red Blood Cells 7.5 /100 WBC (0); Red Blood Count 2.39 M/mcL (4.19-5.50); Red Cell Distribution Width 14.2 % (11.5-14.5); Segmented Neutrophils % 76.2 %; White Blood Count 1.6 K/mcL (4.3-11.1)
[2021-04-09 04:43] LABS: BUN/Creatinine Ratio 48 (6-26); Blood Urea Nitrogen 19 mg/dL (8-23); Calcium 7.6 mg/dL (8.6-10.3); Carbon Dioxide 27 mEq/L (23-29); Chloride 95 mEq/L (98-107); Glucose 137 mg/dL (70-105); Magnesium 1.7 mg/dL (1.6-2.6); Osmolality,Calculated 272 (280-300); Phosphorous 2.7 mg/dL (2.7-4.5); Potassium 3.6 mEq/L (3.5-5.1); Sodium 129 mEq/L (136-145); eGFR For African Americans > 60 (> 60); eGFR For Non-African Americans > 60 (> 60)
[2021-04-09 04:45] LABS: Platelet Count 12 K/mcL (140-400); Platelet Estimate Marked Decrease (Normal)
[2021-04-09] MEDS ORDERED: 0.9 % Sodium Chloride 250 ML IVC SCH (05:15)
[2021-04-09] MEDS: Furosemide 20 MG/2 ML VIAL IVP SCH ×2 (08:13→18:00)
[2021-04-09] MEDS: allopurinoL 300 MG TABLET PO SCH (08:13)
[2021-04-09] MEDS: carvediloL 6.25 MG TABLET PO SCH ×2 (08:13→17:59)
[2021-04-09] MEDS: Potassium Chloride Elixir 20 MEQ/15 ML UDC PO SCH ×2 (08:13→19:38)
[2021-04-09] MEDS: *HR* LORazepam 0.5 MG TABLET SL PRN (11:30)
[2021-04-09] MEDS ORDERED: 0.9 % Sodium Chloride 250 ML ONE (14:35)
[2021-04-09] MEDS: *HR* FentaNYL PATCH 75 MCG PATCH TD SCH (15:28)
[2021-04-09] MEDS: *HR* LORazepam Oral Conc 2 MG/ML SL PRN ×3 (18:00→23:21)
[2021-04-09] MEDS: Mirtazapine 15 MG TABLET PO SCH (19:38)
[2021-04-10] MEDS ORDERED: Acetaminophen IV 1,000 MG/100 ML BAG IVPB ONE
[2021-04-10] MEDS: *HR* LORazepam Oral Conc 2 MG/ML SL PRN ×2 (05:14→21:03)
[2021-04-10 07:34] LABS: Hematocrit 24.7 % (37.5-50.1); Hemoglobin 8.7 g/dL (12.9-16.9); Immature Platelets 5.2 % (1.1-6.1); Mean Corpuscular HGB Conc 35.2 g/dL (31.6-35.5); Mean Corpuscular Hemoglobin 31.3 pg (28.0-33.3); Mean Corpuscular Volume 88.8 fL (83.0-100.0); Mean Platelet Volume 11.1 fL (9.4-12.4); Nucleated Red Blood Cells 7.4 /100 WBC (0); Red Blood Count 2.78 M/mcL (4.19-5.50); Red Cell Distribution Width 14.8 % (11.5-14.5); White Blood Count 1.6 K/mcL (4.3-11.1)
[2021-04-10 07:41] LABS: Platelet Count 9 K/mcL (140-400)
[2021-04-10] MEDS ORDERED: 0.9 % Sodium Chloride 250 ML IVC SCH (07:45)
[2021-04-10 07:50] LABS: BUN/Creatinine Ratio 40 (6-26); Blood Urea Nitrogen 17 mg/dL (8-23); Calcium 7.6 mg/dL (8.6-10.3); Carbon Dioxide 27 mEq/L (23-29); Chloride 95 mEq/L (98-107); Glucose 116 mg/dL (70-105); Magnesium 1.9 mg/dL (1.6-2.6); Osmolality,Calculated 279 (280-300); Phosphorous 3.6 mg/dL (2.7-4.5); Potassium 3.5 mEq/L (3.5-5.1); Sodium 133 mEq/L (136-145); eGFR For African Americans > 60 (> 60); eGFR For Non-African Americans > 60 (> 60)
[2021-04-10] MEDS ORDERED: Cefepime HCl 1,000 MG in Water for inj. (sterile) 10 ML IVP SCH (08:00)
[2021-04-10 08:07] LABS: Lymphocytes # 0.3 K/mcL (0.6-4.6); Monocytes # 0.2 K/mcL (0.0-1.3); Neutrophils # 1.1 K/mcL (1.6-8.9)
[2021-04-10 08:08] LABS: Platelet Estimate Marked Decrease (Normal); Reactive Lymphocytes Present (Not Present)
[2021-04-10] MEDS: Cefepime HCl 2,000 MG in Water for inj. (sterile) 20 ML IVP SCH ×3 (08:52→23:18)
[2021-04-10] MEDS: Furosemide 20 MG/2 ML VIAL IVP SCH (08:53)
[2021-04-10] MEDS: Vancomycin 1,250 MG/262.5 ML IV.SOLN IVPB SCH ×2 (09:01→21:06)
[2021-04-10 09:08] LABS: ABG Base Excess 6 mEq/L (-2 to 3); ABG HCO3 29 mEq/L (21-27); ABG Oxygen Saturation 94 % (95-98); ABG PCO2 33 mmHg (35-45); ABG PH 7.55 pH Units (7.32-7.45); ABG PO2 60 mmHg (85-104); ABG TCO2 30 mEq/L (20-26)
[2021-04-10] MEDS: carvediloL 6.25 MG TABLET PO SCH ×2 (09:08→16:34)
[2021-04-10] MEDS: Ipratropium/Albuterol Neb 3 ML IH SCH ×3 (09:09→22:03)
[2021-04-10] MEDS: MethylPREDNISolone 40 MG/ML VIAL IVP SCH ×3 (10:01→23:18)
[2021-04-10 10:37] LABS: Bilirubin,Urine Negative (Negative); Blood,Urine Negative (Negative); Clarity,Urine Clear (Clear); Color,Urine Yellow (Yellow); Glucose,Urine (UA) Normal (Normal); Ketones,Urine Negative (Negative); Leukocyte Esterase,Urine Negative (Negative); Nitrite,Urine Negative (Negative); PH,Urine 6.5 pH Units (5.0-8.0); Protein,Urine Trace mg/dL (Neg-Trace); Specific Gravity,Urine 1.019 (1.010-1.025); Urobilinogen,Urine >=8.0 mg/dL (Normal)
[2021-04-10] MEDS ORDERED: Acetaminophen 325 MG TABLET PO PRN (10:40)
[2021-04-10] MEDS: Sennosides 8.6 MG TABLET PO SCH ×2 (12:02→21:06)
[2021-04-10] MEDS: allopurinoL 300 MG TABLET PO SCH (12:02)
[2021-04-10] MEDS: Potassium Chloride Elixir 20 MEQ/15 ML UDC PO SCH ×2 (12:02→21:06)
[2021-04-10] MEDS ORDERED: 0.9 % Sodium Chloride 500 ML IVC SCH (13:30)
[2021-04-10 14:02] LABS: Adenovirus Not Detected (Not Detect); Bordetella Pertussis Not Detected (Not Detect); Chlamydophila pneumoniae Not Detected (Not Detect); Coronavirus 229E Not Detected (Not Detect); Coronavirus HKU1 Not Detected (Not Detect); Coronavirus NL63 Not Detected (Not Detect); Coronavirus OC43 Not Detected (Not Detect); Human Metapneumovirus Not Detected (Not Detect); Human Rhinovirus/Enterovirus Not Detected (Not Detect); Influenza A Subtype 2009 H1 Not Detected (Not Detect); Influenza B Not Detected (Not Detect); Parainfluenza Virus 1 Not Detected (Not Detect); Parainfluenza Virus 2 Not Detected (Not Detect); Parainfluenza Virus 3 Not Detected (Not Detect); Parainfluenza Virus 4 Not Detected (Not Detect); Respiratory Syncytial Virus Not Detected (Not Detect); SARS-CoV-2 Not Detected (Not Detect)
[2021-04-10 14:03] LABS: Mycoplasma pneumoniae Not Detected (Not Detect)
[2021-04-10 15:30] LABS: Hematocrit 20.6 % (37.5-50.1); Hemoglobin 7.3 g/dL (12.9-16.9); Mean Corpuscular HGB Conc 35.4 g/dL (31.6-35.5); Mean Corpuscular Hemoglobin 31.2 pg (28.0-33.3); Mean Platelet Volume 10.2 fL (9.4-12.4); Red Blood Count 2.34 M/mcL (4.19-5.50); Red Cell Distribution Width 14.6 % (11.5-14.5); White Blood Count 1.8 K/mcL (4.3-11.1)
[2021-04-10 15:37] LABS: Platelet Count 20 K/mcL (140-400)
[2021-04-10] MEDS: Melatonin 3 MG TABLET PO PRN (21:03)
[2021-04-10] MEDS: Mirtazapine 15 MG TABLET PO SCH (21:06)
[2021-04-10] MEDS ORDERED: *HR* LORazepam 2 MG/ML VIAL IVP ONE (21:32)
[2021-04-11] MEDS: *HR* LORazepam Oral Conc 2 MG/ML SL PRN ×5 (03:19→18:22)
[2021-04-11] MEDS ORDERED: Haloperidol Lactate 5 MG/ML VIAL IVP ONE (03:29)
[2021-04-11] MEDS: Ipratropium/Albuterol Neb 3 ML IH SCH ×4 (04:08→22:20)
[2021-04-11 05:05] LABS: Hemoglobin 7.1 g/dL (12.9-16.9); Red Cell Distribution Width 14.6 % (11.5-14.5)
[2021-04-11 05:07] LABS: Hematocrit 20.2 % (37.5-50.1); Immature Granulocytes % 9.5 % (0-4); Lymphocytes # 0.3 K/mcL (0.6-4.6); Mean Corpuscular HGB Conc 35.1 g/dL (31.6-35.5); Mean Corpuscular Hemoglobin 31.1 pg (28.0-33.3); Mean Corpuscular Volume 88.6 fL (83.0-100.0); Mean Platelet Volume 10.6 fL (9.4-12.4); Monocytes # 0.1 K/mcL (0.0-1.3); Monocytes % 4.8 %; Neutrophils # 1.7 K/mcL (1.6-8.9); Nucleated Red Blood Cells 4.8 /100 WBC (0); Red Blood Count 2.28 M/mcL (4.19-5.50); Segmented Neutrophils % 72.7 %; White Blood Count 2.3 K/mcL (4.3-11.1)
[2021-04-11 05:23] LABS: BUN/Creatinine Ratio 47 (6-26); Blood Urea Nitrogen 20 mg/dL (8-23); Calcium 7.7 mg/dL (8.6-10.3); Carbon Dioxide 27 mEq/L (23-29); Chloride 98 mEq/L (98-107); Glucose 162 mg/dL (70-105); Osmolality,Calculated 286 (280-300); Phosphorous 3.4 mg/dL (2.7-4.5); Potassium 3.6 mEq/L (3.5-5.1); Sodium 135 mEq/L (136-145); eGFR For African Americans > 60 (> 60); eGFR For Non-African Americans > 60 (> 60)
[2021-04-11 05:27] LABS: Platelet Count 13 K/mcL (140-400)
[2021-04-11 05:45] LABS: Anisocytosis 1+ (Not Present)
[2021-04-11 05:46] LABS: Hypochromasia Present (Not Present); Platelet Estimate Marked Decrease (Normal); Poikilocytosis 1+ (Not Present); Toxic Granulation Present (Not Present)
[2021-04-11] MEDS: Cefepime HCl 2,000 MG in Water for inj. (sterile) 20 ML IVP SCH (08:44)
[2021-04-11] MEDS: MethylPREDNISolone 40 MG/ML VIAL IVP SCH ×2 (08:44→20:06)
[2021-04-11] MEDS: Vancomycin 1,250 MG/262.5 ML IV.SOLN IVPB SCH ×2 (08:45→22:04)
[2021-04-11] MEDS: carvediloL 6.25 MG TABLET PO SCH ×2 (10:21→20:07)
[2021-04-11] MEDS: Potassium Chloride Elixir 20 MEQ/15 ML UDC PO SCH ×2 (10:21→20:57)
[2021-04-11] MEDS: allopurinoL 300 MG TABLET PO SCH (10:21)
[2021-04-11] MEDS: Sennosides 8.6 MG TABLET PO SCH ×2 (10:21→20:57)
[2021-04-11] MEDS ORDERED: haloperidoL 1 MG TABLET PO PRN (14:11)
[2021-04-11] MEDS ORDERED: SULFAMETHOXAZOLE IVPB SCH (15:00)
[2021-04-11] MEDS ORDERED: D5 IVPB SCH (15:00)
[2021-04-11] MEDS ORDERED: TRIMETH IVPB SCH (15:00)
[2021-04-11] MEDS ORDERED: WATER IVPB SCH (15:00)
[2021-04-11] MEDS ORDERED: 0.9 % Sodium Chloride 500 ML IVC SCH (15:15)
[2021-04-11] MEDS: Haloperidol Lactate 5 MG/ML VIAL IVP PRN ×2 (16:18→20:43)
[2021-04-11] MEDS ORDERED: 0.9 % Sodium Chloride 250 ML ONE (16:40)
[2021-04-11] MEDS: SULFAMETHOXAZOLE IVPB SCH (19:09)
[2021-04-11] MEDS: WATER IVPB SCH (19:09)
[2021-04-11] MEDS: TRIMETH IVPB SCH (19:09)
[2021-04-11] MEDS: D5 IVPB SCH (19:09)
[2021-04-11] MEDS: Piperacillin/Tazobactam 3.375 GM in 0.9 % Sodium Chloride Mini Bag 100 ML IVPB SCH (20:05)
[2021-04-11] MEDS: Mirtazapine 15 MG TABLET PO SCH (20:57)
[2021-04-11] MEDS ORDERED: *HR* LORazepam 2 MG/ML VIAL IVP ONE (22:22)
[2021-04-11] MEDS ORDERED: *HR* Metoprolol 5 MG/5 ML VIAL IVP ONE (22:39)
[2021-04-12] MEDS: MethylPREDNISolone 40 MG/ML VIAL IVP SCH ×3 (00:30→16:31)
[2021-04-12] MEDS: Piperacillin/Tazobactam 3.375 GM in 0.9 % Sodium Chloride Mini Bag 100 ML IVPB SCH ×3 (00:38→16:32)
[2021-04-12] MEDS: Ipratropium/Albuterol Neb 3 ML IH SCH ×3 (03:54→15:34)
[2021-04-12] MEDS ORDERED: *HR* LORazepam 2 MG/ML VIAL IVP ONE ×3 (04:21→11:41)
[2021-04-12] MEDS: SULFAMETHOXAZOLE IVPB SCH ×3 (04:45→16:32)
[2021-04-12] MEDS: WATER IVPB SCH ×3 (04:45→16:32)
[2021-04-12] MEDS: D5 IVPB SCH ×3 (04:45→16:32)
[2021-04-12] MEDS: TRIMETH IVPB SCH ×3 (04:45→16:32)
[2021-04-12] MEDS: carvediloL 6.25 MG TABLET PO SCH ×2 (07:42→15:38)
[2021-04-12] MEDS: Potassium Chloride Elixir 20 MEQ/15 ML UDC PO SCH (07:43)
[2021-04-12] MEDS: allopurinoL 300 MG TABLET PO SCH (07:43)
[2021-04-12] MEDS: Sennosides 8.6 MG TABLET PO SCH (07:43)
[2021-04-12] MEDS: *HR* LORazepam Oral Conc 2 MG/ML SL PRN (07:49)
[2021-04-12] MEDS: Vancomycin 1,250 MG/262.5 ML IV.SOLN IVPB SCH ×2 (07:50→12:41)
[2021-04-12] MEDS: Dexmedetomidine HCl 400 MCG/100 ML MLS IVC SCH ×2 (08:56→16:22)
[2021-04-12 09:02] VITALS: BP 109/79; PULSE 130
[2021-04-12 10:02] VITALS: O2SAT 85
[2021-04-12 10:12] VITALS: TEMP 97.7
[2021-04-12] MEDS ORDERED: Morphine Sulfate 2 MG/ML SYRINGE IVP ONE ×2 (10:42→11:22)
[2021-04-12] MEDS ORDERED: Morphine Sulfate 2 MG/ML SYRINGE IVP PRN ×2 (10:43→12:12)
[2021-04-12] MEDS: *HR* FentaNYL PATCH 75 MCG PATCH TD SCH (10:46)
[2021-04-12 11:13] LABS: Mean Corpuscular Volume 89.6 fL (83.0-100.0)
[2021-04-12 11:14] LABS: Hemoglobin 6.5 g/dL (12.9-16.9); Immature Platelets 8.7 % (1.1-6.1); Lymphocytes # 0.4 K/mcL (0.6-4.6); Lymphocytes % 8.7 %; Mean Corpuscular HGB Conc 34.2 g/dL (31.6-35.5); Mean Corpuscular Hemoglobin 30.7 pg (28.0-33.3); Mean Platelet Volume 11.2 fL (9.4-12.4); Monocytes # 0.1 K/mcL (0.0-1.3); Monocytes % 2.7 %; Nucleated Red Blood Cells 7.2 /100 WBC (0); Red Blood Count 2.12 M/mcL (4.19-5.50); Red Cell Distribution Width 14.8 % (11.5-14.5); Segmented Neutrophils % 78.6 %
[2021-04-12 11:15] LABS: Neutrophils # 3.1 K/mcL (1.6-8.9)
[2021-04-12 11:17] LABS: Platelet Count 12 K/mcL (140-400)
[2021-04-12 11:41] LABS: BUN/Creatinine Ratio 44 (6-26); Blood Urea Nitrogen 24 mg/dL (8-23); Calcium 7.6 mg/dL (8.6-10.3); Carbon Dioxide 25 mEq/L (23-29); Chloride 103 mEq/L (98-107); Glucose 149 mg/dL (70-105); Magnesium 2.2 mg/dL (1.6-2.6); Osmolality,Calculated 293 (280-300); Phosphorous 3.3 mg/dL (2.7-4.5); Potassium 3.4 mEq/L (3.5-5.1); Sodium 138 mEq/L (136-145); eGFR For African Americans > 60 (> 60); eGFR For Non-African Americans > 60 (> 60)
[2021-04-12 12:04] LABS: Platelet Estimate Marked Decrease (Normal)
[2021-04-12] MEDS ORDERED: *HR* LORazepam 2 MG/ML VIAL IVP SCH (12:15)
[2021-04-12] MEDS ORDERED: Ipratropium/Albuterol Neb 3 ML IH PRN (19:44)
== END 2021-04-12 23:10 | disposition expired | DRG 720 ==
LOC: EMEROOARM 14:56 → 2ANU 14:56 → SUATTDRO 03-28 16:00 → 3ANU 03-30 16:28 → 2NENU 04-09 10:39
PROVIDERS: ADMIT Family Medicine; ATTEND Internal Medicine